=== PATIENT | female | born 1955 | race Caucasian/White ===

== ENCOUNTER 2016-10-03 13:41 | Inpatient (IN) | payer MEDICAID ==
[2016-09-21 15:17] VITALS: BMI 32.5
[~2016-10-03 13:41] MED LIST: ACETAMINOPHEN TAB 500 MG TAB PO ONE; CLINDAMYCIN 900 MG in DEXTROSE 5% IN WATER 50 ML IVPB ONE; DEXAMETHASONE SOD PHOSPHATE 10 MG/ML 1 ML VIAL IV ONE; HYDROmorphone 1 MG/ML 1 ML SYRINGE IVP PRN; MELOXICAM 7.5 MG TAB PO ONE; MIDAZOLAM 2 MG/2 ML VIAL IV PRN; ONDANSETRON 4 MG/2 ML VIAL IVP ONE; SCOPOLAMINE 1.5MG/72HR PATCH TRANSDERM ONE; TRANEXAMIC ACID 1,000 MG in SODIUM CHLORIDE 0.9% 100 ML IVPB ONE
[2016-10-03] MEDS ORDERED: LIDOCAINE 1% 20 ML VIAL (10MG/ML) FOR IV START INTRADERMA ONE (13:55)
[2016-10-03] MEDS: LACTATED RINGERS 1,000 ML IV SCH (13:57)
[2016-10-03] MEDS ORDERED: MIDAZOLAM 2 MG/2 ML VIAL IV ONE (14:22)
[2016-10-03] MEDS ORDERED: ROPIVACAINE 246.25 MG, EPINEPHrine 0.5 MG, KETOROLAC 30 MG, cloNIDine HCL/PF 80 MCG, WA... MISCELLANE ONE ×5 (15:46)
[2016-10-03] MEDS ORDERED: MAGNESIUM HYDROXIDE 2,400 MG/10 ML CUP PO PRN (15:55)
[2016-10-03] MEDS ORDERED: ONDANSETRON 4 MG/2 ML VIAL IVP PRN (15:55)
[2016-10-03] MEDS ORDERED: BISACODYL 10 MG SUPP RECTAL PRN (15:55)
[2016-10-03] MEDS ORDERED: NALOXONE 0.4 MG/ML 1 ML VIAL IV PRN (15:55)
[2016-10-03] MEDS ORDERED: HYDROmorphone 1 MG/ML 1 ML SYRINGE IVP PRN ×3 (15:55)
[2016-10-03] MEDS ORDERED: DIAZEPAM 5 MG TAB PO PRN ×2 (15:55)
[2016-10-03] MEDS ORDERED: HYDROcodone/APAP 5-325MG 1 EACH TAB PO PRN (15:55)
[2016-10-03] MEDS ORDERED: MIDAZOLAM 2 MG/2 ML VIAL ONE (16:19)
[2016-10-03] MEDS ORDERED: PROPOFOL 10 MG/ML 20 ML VIAL IV ONE (16:19)
[2016-10-03] MEDS ORDERED: TRANEXAMIC ACID 1,000 MG/10 ML VIAL ONE (16:19)
[2016-10-03] MEDS ORDERED: SODIUM CHLORIDE 0.9% 100 ML BAG ONE (16:19)
[2016-10-03] MEDS: ROPIVACAINE 246.25 MG, EPINEPHrine 0.5 MG, KETOROLAC 30 MG, cloNIDine HCL/PF 80 MCG, WA... MISCELLANE ONE ×10 (16:47→17:20)
[2016-10-03] MEDS ORDERED: CLINDAMYCIN 1,800 MG in SODIUM CHLORIDE 0.9% IRRIGATIO 3,000 ML IRRIGATION ONE (16:48)
[2016-10-03] MEDS ORDERED: LACTATED RINGERS 1,000 ML IV ONE (16:48)
[2016-10-03] MEDS ORDERED: ROPIVACAINE 1,100 MG, SODIUM CHLORIDE 0.9% 330 ML MISCELLANE PRN ×2 (17:20)
--- NOTE | 2016-10-03 17:21 | P.ONQ ---
Anesthesiology Proc Note - PNB - Peripheral Nerve Block Performed Left Adductor Canal Indication: Acute Post-Operative Pain, Requested by physician (hayes nino) Sedation Type: Sedate with meaningful contact maintained Preparation: Sterile Dressing Position: Supine Catheter: Indwelling Needle Types: On-Q Needle Size: 100mm (4") Needle Gauge: 20 Technique: Ultrasound Injectate: 0.5% Ropivacaine (see comment for volume) (20) Blood Aspirated: No Pain Paresthesia on Injection Noted: No Resistance on Injection: Normal Events: Uneventful and Well Tolerated
--- NOTE | 2016-10-03 17:44 | P.OP ---
Date of Procedure: 10/03/16 Preoperative Diagnosis: Severe osteoarthritis left knee Postoperative Diagnosis: Severe osteoarthritis left knee Procedure(s) Performed: Left total knee arthroplasty Implants: Catalan [employer] Nephew Oxinium femoral component size 5, left Catalan [employer] Nephew Flor II left nonporous tibial baseplate size 4 Catalan [employer] Nephew size 9 mm Legion XLPE dished articular insert, size 3-4 Catalan [employer] Nephew Flor II resurfacing patellar component, 32 mm, 7.5mm thick All components were cemented using Kisha bone cement.. The articulation is ceramic on polyethylene. Anesthesia: spinal Surgeon: Buck Cronin Sales Associate Fishing #1: Merline Marquez Estimated Blood Loss (ml): 50 Pathology: other (Bone and cartilage) Condition: stable Disposition: PACU Indications for Procedure: After failure of conservative treatment we discussed the surgical and nonsurgical treatment options at length. Patient wishes to proceed with a total knee arthroplasty. Complications specific to this procedure were discussed at length, including but not limited to infection, bleeding, stiffness , and nerve injury. Patient is aware of all these complications and informed consent was obtained Operative Findings: The operative findings are consistent with severe osteoarthritis of the left knee Description of Procedure: Patient was seen in the preoperative area consent was reviewed and operative site was marked with a skin marker. Patient was then brought to the operating room and given preoperative antibiotics intravenously. A spinal anesthetic was administered by the anesthesia department. A tourniquet was placed on the upper thigh and the lower extremity was prepped and draped in usual sterile fashion. A gram of transexamic acid was given. A universal timeout was then performed which confirmed the patient's name, surgical site, ALLERGIES, and consent. The lower extremity was then exsanguinated and tourniquet was inflated to 250 mmHg. A standard and anterior midline approach to the knee was performed. The skin and subcutaneous tissue was dissected down to the patellar tendon. A medial parapatellar arthrotomy was then performed. The knee was then extended, the patellar was everted, and the knee was again flexed. Anterior horns of both menisci were excised, and a release was performed to the posterior medial aspect of the knee. On gross visual inspection, there was complete loss of articular cartilage in the medial and patellofemoral joint spaces. There was also significant cartilage damage in the lateral compartment. There were multiple periarticular osteophytes which were then removed with a Ronguer. The femoral canal was then opened with the appropriate drill, and the intramedullary femoral cutting guide was then placed and set for 4 of valgus. The distal femoral cutting block was then pinned in place, and the distal femur was then cut. The cutting block was then removed and the cut was checked for flatness. Next, the sizing guide was then placed and set for 3 external rotation based off of the epicondylar axis and Whitesides line. After the femur was sized, the appropriate 4-in-1 cutting block was then pinned in place. The anterior condyles were cut without notching. The posterior and chamfer cuts were performed while protecting the collateral ligaments. The cutting block was then removed, and the femoral canal was plugged with autologous bone. Attention was then directed to the tibia. The remaining ACL was removed with a Ronguer, and the tibia was then gently subluxed forward with a large bent knee retractor. Any remaining menisci was excised. The posterior lateral corner was cauterized in order to cauterize the lateral geniculate artery. The extra medullary tibial cutting guide was then placed, set for the appropriate rotation , slope, and depth of resection. The proximal tibia cutting guide was then pinned in place. Proximal tibia was then cut and sized. Next trials were then placed with the appropriate-sized insert. The knee was able to fully extend and flex to 130 and was stable throughout all range of motion. The knee was then extended, patella everted. Patella was then measured, and then using an osteotomy guide, the patella was cut at the appropriate level. The patella was then measured and drilled and the patella trial was then placed. The knee was then taken through range of motion with the patella trial and the patella tracked normally. The knee was then extended patella trial was then removed and the patella was everted. Knee was then flexed and lug holes were drilled through the femoral trial and the femoral trial was then removed. The tibial was then exposed, and the tibial broach guide was then pinned in place after it was set for the appropriate rotation to allow for the most coverage without overhang. The tibia was then broached. The cut surfaces of bone were then irrigated with pulsatile lavage. The posterior structures were injected with the ropivacaine solution. The knee was also irrigated with Irrisept solution. The components were then opened, the cement was mixed, and the components were then cemented in place. The cement was allowed to harden with the knee in full extension. While the cement was hardening, the remaining soft tissues were injected with the ropivacaine solution. After the cemented hardened. The tourniquet was released, and hemostasis was obtained. A second gram of transexamic acid was given. The knee was again irrigated. The knee was again taken through range of motion and found to be stable throughout all range of motion of 0-130, and the patella tracked normally. The fascia was then closed with #2 strata fix suture. The subcutaneous tissue was closed with 3-0 Vicryl and 3-0 strata fix. Dermabond tape was used for the skin, and the patient was placed in a sterile dressing. Patient was then transferred to recovery room in stable condition. The chiropractor assistant MARY Hickman was required due the complexity surgery and the need for a skilled surgical resident. She assisted in positioning, draping , retraction, and closure of the wound.
[2016-10-03] MEDS ORDERED: SENNOSIDES-DOCUSATE SODIUM 1 EACH TAB PO SCH (21:00)
[2016-10-03] MEDS: ASPIRIN 325 MG TAB PO SCH (22:17)
--- NOTE | 2016-10-03 22:23 | XR ---
EXAMINATION TYPE: XR knee limited LT DATE OF EXAM: 10/03/2016 6:14 PM CLINICAL HISTORY: Postop left total knee replacement TECHNIQUE: Three views of the left knee are obtained. COMPARISON: No prior radiographs. FINDINGS: There is anatomic alignment of the left femoral and tibial components of a knee arthroplas ty. No surrounding lucency is appreciated to indicate loosening. Hardware is intact. No periosteal re action. Postoperative subcutaneous emphysema is seen around the knee joint. Suprapatellar effusion is noted, likely postsurgical. Generalized postoperative subcutaneous edema. IMPRESSION: Appropriate postsurgical anatomic alignment of a right knee arthroplasty. Subcutaneous em physema and edema are postoperative in nature.
[2016-10-03] MEDS: SODIUM CHLORIDE 0.9% 1,000 ML IV SCH (22:36)
[2016-10-04] MEDS: CLINDAMYCIN 900 MG in DEXTROSE 5% IN WATER 50 ML IVPB SCH ×4 (01:06→05:21)
[2016-10-04 01:23] VITALS: TEMP 98.8
[2016-10-04] MEDS: HYDROcodone/APAP 5-325MG 1 EACH TAB PO PRN ×2 (01:25→08:19)
[2016-10-04] MEDS: SODIUM CHLORIDE 0.9% 1,000 ML IV SCH (05:21)
[2016-10-04] MEDS: LACTATED RINGERS 1,000 ML IV SCH (05:37)
[2016-10-04 07:28] VITALS: BP 100/58; PULSE 95; RESP 18
[2016-10-04 08:04] LABS: Basophils % (A) 0 %; CH 29.9; CHCM 33.2; Eosinophils % (A) 0 %; HCT 34.7 % (34.0-46.0); HDW 2.52; HGB 11.5 gm/dL (11.4-16.0); Luc # (Auto) 0.08; Luc % (Auto) 1; Lymphocytes # (A) 1.2 k/uL (1.0-4.8); Lymphocytes % (A) 12 %; MCH 30.1 pg (25.0-35.0); MCHC 33.3 g/dL (31.0-37.0); MCV 90.4 fL (80.0-100.0); Mean Platelet Volume 7.4; Monocytes # (A) 0.5 k/uL (0-1.0); Monocytes % (A) 5 %; Neutrophils # (A) 8.4 k/uL (1.3-7.7); Neutrophils % (A) 83 %; RBC 3.83 m/uL (3.80-5.40); WBC 10.2 k/uL (3.8-10.6); WBC (Perox) 10.63
[2016-10-04] MEDS: ASPIRIN 325 MG TAB PO SCH (08:18)
--- NOTE | 2016-10-04 08:18 | P.PN ---
Progress Note - Text The patient is status post left adductor canal catheter placement. The catheter was placed for postoperative pain control, status post total left arthroplasty. Ropivacaine 0.2% is infusing at 8 mLs per hour. The patient has no complaints of left lower extremity numbness or weakness. Patient's VAS score is 0 -10. Assessment: Patient's adductor canal catheter is in place and working appropriately. Plan: continue infusion and adjust it as needed.
--- NOTE | 2016-10-04 08:57 | P.DS ---
Providers Date of admission: 10/03/16 13:41 Expected date of discharge: 10/04/16 Attending physician: Buck Cronin Consults: 10/03/16 15:55 Consult Physician Routine Consulting Provider: Kedar James Consult Reason/Comments: medical management Do you want consulting provider notified?: Yes Primary care physician: Dread Chahal - Discharge Diagnosis(es) (1) S/P total knee arthroplasty Current Visit: Yes Status: Acute (2) Primary osteoarthritis of left knee Current Visit: Yes Status: Acute Hospital Course: This is a pleasant 60-year-old female last seen in our office with complaints of left knee pain. Patient has known history of degenerative arthritis of the left knee and presented to discuss options. After discussion and consideration , the patient elected to proceed with a left total knee arthroplasty. Patient was seen preoperatively, and medically cleared for surgery by . her primary care physician. Patient was admitted to [facility] and underwent left total knee arthroplasty with Dr. Buck Cronin. The procedure was performed without complications or sequelae. The patient is seen and evaluated at bedside today. Pain is well-controlled. Patient has no new complaints today and denies any fevers, chills, nausea, vomiting, or shortness of breath. Vital signs are stable. Dressing is clean dry and intact. Incision looks fine with no erythema or active drainage. Calf is soft and nontender. Patient has full foot and ankle motion without difficulty. Patient's left lower extremity is neurovascularly intact. The patient is orthopedically stable for discharge today. Pertinent Studies: Laboratory Tests 10/04/16 07:03 WBC 10.2 RBC 3.83 Hgb 11.5 Hct 34.7 MCV 90.4 MCH 30.1 Patient Condition at Discharge: Good Plan - Discharge Summary New Discharge Prescriptions: Aspirin EC [Ecotrin] 325 mg PO BID #60 tablet. HYDROcodone/APAP 7.5-325MG [Sherwood 7.5] 1 - 2 each PO Q6HR PRN #90 tab PRN Reason: Pain Sennosides-Docusate Sodium [Senokot-S] 2 tab PO DAILY #60 tablet Discharge Medication List Escitalopram [Lexapro] 10 mg PO DAILY 09/21/16 [History] Ibuprofen [Motrin] 600 mg PO Q8HR PRN 09/21/16 [History] Levothyroxine Sodium [Synthroid] 112 mcg PO DAILY 09/21/16 [History] Pregabalin [Lyrica] 200 mg PO BID 09/21/16 [History] Venlafaxine HCl [Effexor XR] 150 mg PO QAM 09/21/16 [History] traZODone HCL 100 mg PO HS 09/21/16 [History] Aspirin EC [Ecotrin] 325 mg PO BID #60 tablet. 10/04/16 [Rx] HYDROcodone/APAP 7.5-325MG [Sherwood 7.5] 1 - 2 each PO Q6HR PRN #90 tab 10/04/16 [ Rx] Sennosides-Docusate Sodium [Senokot-S] 2 tab PO DAILY #60 tablet 10/04/16 [Rx] Follow up Appointment(s)/Referral(s): Buck Cronin DO [Doctor of Osteopathic Medicine] - 2 Weeks Ambulatory/Diagnostic Orders: Continuous Passive Motion (CPM) Machine [DME.AMB1] Location: Determined By Patient Activity/Diet/Wound Care/Special Instructions: Weightbearing as tolerated with a walker CPM daily Daily dressing changes, keep incision clean and dry May shower after 72 hours without any drainage [facility] with questions or concerns [phone] Discharge Disposition: HOME WITH HOME HEALTH SERVICES
[2016-10-04] MEDS ORDERED: MELOXICAM 7.5 MG TAB PO SCH (09:00)
--- NOTE | 2016-10-04 11:22 | P.CONS ---
History of Present Illness - History of Present Illness 60-year-old female is post total left knee arthroplasty. Patient sitting in the chair states pain controlled. Vital signs stable CBC normal. Patient has history of hypothyroidism and depression both controlled Review of Systems Musculoskeletal: left: knee pain Past Medical History Past Medical History: Fibromyalgia, Osteoarthritis (OA), Thyroid Disorder History of Any Multi-Drug Resistant Organisms: None Reported Past Surgical History: Cholecystectomy Additional Past Surgical History / Comment(s): Donaldo fundoplasty, 10-03-16 total lt knee replacment Past Anesthesia/Blood Transfusion Reactions: Postoperative Nausea & Vomiting ( PONV) Past Psychological History: Depression Smoking Status: Never smoker Past Alcohol Use History: None Reported Past Drug Use History: None Reported - Past Family History Father Family Medical History: Cancer Additional Family Medical History / Comment(s): lung Medications and Allergies Home Medications Medication Instructions Recorded Confirmed Type Escitalopram [Lexapro] 10 mg PO DAILY 09/21/16 10/03/16 History Ibuprofen [Motrin] 600 mg PO Q8HR PRN 09/21/16 10/03/16 History Levothyroxine Sodium [Synthroid] 112 mcg PO DAILY 09/21/16 10/03/16 History Pregabalin [Lyrica] 200 mg PO BID 09/21/16 10/03/16 History Venlafaxine HCl [Effexor XR] 150 mg PO QAM 09/21/16 10/03/16 History traZODone HCL 100 mg PO HS 09/21/16 10/03/16 History Allergies Allergy/AdvReac Type Severity Reaction Status Date / Time adhesive tape Allergy Rash/Hives Verified 10/03/16 13:49 cephalexin [From Keflex] Allergy Unknown Verified 10/03/16 13:49 cetirizine [From Zyrtec] Allergy Rash/Hives Verified 10/03/16 13:49 Iodine and Iodide Containing Allergy blister Verified 10/03/16 13:49 Produc Physical Exam Vitals: Vital Signs Temp Pulse Resp BP Pulse Ox 10/04/16 07:00 98.8 F 95 18 100/58 95 10/04/16 04:00 16 10/04/16 01:22 98.8 F 74 16 128/61 93 L 10/03/16 22:30 98.4 F 16 135/64 95 10/03/16 22:15 69 16 126/60 96 10/03/16 22:00 79 16 133/66 96 10/03/16 21:45 88 16 148/72 94 L 10/03/16 21:30 85 16 155/78 95 10/03/16 21:15 88 16 117/63 94 L 10/03/16 21:00 93 16 131/66 96 10/03/16 20:45 90 16 128/63 96 10/03/16 20:30 88 16 129/66 93 L 10/03/16 20:15 88 16 120/68 95 10/03/16 20:00 89 16 119/60 95 10/03/16 19:45 97.8 F 94 16 129/59 94 L 10/03/16 18:31 96 16 130/62 93 L 10/03/16 18:17 97 16 127/59 95 10/03/16 17:57 97.0 F L 98 16 129/59 98 10/03/16 13:54 98.3 F 85 16 142/63 93 L Intake and Output 10/03/16 10/04/16 10/04/16 22:59 06:59 14:59 Intake Total 1058 800 120 Output Total 100 400 1 Balance 958 400 119 Intake: IV 1058 800 Sodium Chloride 0.9% 1, 800 000 ml @ 100 mls/hr IV . Q10H [facility] Rx#:[id number] Oral 120 Output: Urine 50 400 1 Estimated Blood Loss 50 Other: Voiding Method Bedpan # Voids 1 2 - Constitutional General appearance: obese - EENT Eyes: PERRLA Ears: bilateral: normal - Neck Neck: normal ROM - Respiratory Respiratory: bilateral: CTA - Cardiovascular Rhythm: regular - Gastrointestinal General gastrointestinal: soft - Integumentary Integumentary: normal - Neurologic Neurologic: CNII-XII intact - Psychiatric Psychiatric: A&O x's 3, appropriate affect, intact judgment & insight Results CBC & Chem 7: 10/04/16 07:03 Labs: Abnormal Lab Results - Last 24 Hours (Table) 10/04/16 Range/Units 07:03 Neutrophils # 8.4 H (1.3-7.7) k/uL Assessment and Plan Plan: Assessment Patient's postoperative left knee arthroplasty for osteoarthritis History of fibromyalgia History of depression History of hypothyroidism Plan Discharged home on home medication Patient stable for discharge
== END 2016-10-04 12:16 | disposition home health service (06) | DRG 470 ==
LOC: 2ORMAIN 13:41 → 3SUR 17:55
PROVIDERS: ADMIT Family Medicine; ATTEND Family Medicine
PROC: 0SRD0J9 Replacement of Left Knee Joint with Synthetic Substitute, Cemented, Open Approach (ICD-10-PCS; principal; 2016-10-03 15:20)
DX: M17.12 Unilateral primary osteoarthritis, left knee (principal); F32.9 Major depressive disorder, single episode, unspecified; E03.9 Hypothyroidism, unspecified; M79.7 Fibromyalgia; Z79.899 Other long term (current) drug therapy; Z88.8 Allergy status to other drugs, medicaments and biological substances; Z88.1 Allergy status to other antibiotic agents; Z91.041 Radiographic dye allergy status
CPT/HCPCS: 85025; 88300

== ENCOUNTER → 2017-05-18 | Outpatient (CLI) | payer MEDICAID ==
[2017-05-18 07:51] LABS: CH 31.1; HDW 2.73; HGB 13.6 gm/dL (11.4-16.0); MCH 30.3 pg (25.0-35.0); MCHC 33.9 g/dL (31.0-37.0); MCV 89.3 fL (80.0-100.0); Mean Platelet Volume 7.7; RBC 4.48 m/uL (3.80-5.40); RDW 14.3 % (11.5-15.5); WBC 4.4 k/uL (3.8-10.6)
[2017-05-18 09:35] LABS: ALT 33 U/L (9-52); AST 19 U/L (14-36); Alkaline Phosphatase 72 U/L (38-126); Anion Gap 9 mmol/L; Blood Urea Nitrogen 18 mg/dL (7-17); Calcium 9.7 mg/dL (8.4-10.2); Carbon Dioxide 28 mmol/L (22-30); Chloride 105 mmol/L (98-107); Cholesterol 192 mg/dL (<200); Glucose 135 mg/dL (74-99); HDL Cholesterol 54 mg/dL (40-60); Non-African American GFR(MDRD) >60 (>60 ml/min/1.73 sqM); Sodium 142 mmol/L (137-145); Total Bilirubin 0.6 mg/dL (0.2-1.3); Total Protein 6.5 g/dL (6.3-8.2)
== END | disposition home or self-care (01) ==
LOC: LABWHC1 07:18
PROVIDERS: ATTEND Psychiatry & Neurology Psychiatry
DX: E03.9 Hypothyroidism, unspecified (principal); Z79.899 Other long term (current) drug therapy
CPT/HCPCS: 36415; 80053; 80061; 84439; 84443; 85027

== ENCOUNTER → 2017-05-23 | Outpatient (CLI) | payer MEDICAID ==
[2017-05-23 14:06] LABS: Hemoglobin A1C 5.4 % (4.2-6.1)
== END | disposition home or self-care (01) ==
LOC: LABWHC1 11:59
PROVIDERS: ATTEND Psychiatry & Neurology Psychiatry
DX: E11.9 Type 2 diabetes mellitus without complications (principal)
CPT/HCPCS: 36415; 83036

== ENCOUNTER → 2017-05-30 | Outpatient (CLI) | payer MEDICAID ==
--- NOTE | 2017-05-31 10:56 | MM ---
Reason for exam: screening (asymptomatic). Last mammogram was performed 8 years and 5 months ago. Physical Findings: A clinical breast exam by your physician is recommended on an annual basis and results should be correlated with mammographic findings. MG 3D Screening Mammo W/Cad Bilateral CC and MLO view(s) were taken. Prior study comparison: December 25, 2008, bilateral digital screening mammogram. October 29, 2004, bilateral screening mammogram. The breast tissue is heterogeneously dense. This may lower the sensitivity of mammography. There is no discrete abnormality. No significant changes when compared with prior studies. ASSESSMENT: Negative, BI-RAD 1 RECOMMENDATION: Routine screening mammogram of both breasts in 1 year.
== END | disposition home or self-care (01) ==
LOC: RADMAMWWP 15:31
PROVIDERS: ATTEND Family Medicine
DX: Z12.31 Encounter for screening mammogram for malignant neoplasm of breast (principal)
CPT/HCPCS: 77063; G0202

== ENCOUNTER → 2017-09-21 | Outpatient (CLI) | payer MEDICAID ==
[2017-09-21 10:30] LABS: T4, Free (Free Thyroxine) 1.15 ng/dL (0.78-2.19)
[2017-09-21 18:51] LABS: Hemoglobin A1C 5.6 % (4.0-6.0)
== END | disposition home or self-care (01) ==
LOC: LABWHC1 09:04
PROVIDERS: ATTEND Psychiatry & Neurology Psychiatry
DX: E03.9 Hypothyroidism, unspecified (principal)
CPT/HCPCS: 36415; 83036; 84439; 84443; 84460

== ENCOUNTER → 2018-04-03 | Outpatient (CLI) | payer MEDICAID ==
--- NOTE | 2018-04-03 16:16 | US ---
EXAMINATION TYPE: US thyroid st tissue head/neck DATE OF EXAM: 04/03/2018 COMPARISON: NONE CLINICAL HISTORY: 62-year-old female E04.1 Thyroid nodule. Difficulty swallowing, on thyroid meds TECHNIQUE: Multiple sonographic images of the thyroid gland are obtained. FINDINGS: GLAND SIZE: Right Lobe: 2.4 x 0.7 x 0.8 cm Overall Parenchyma: heterogenous Left Lobe: 2.7 x 0.6 x 0.6 cm Overall Parenchyma: heterogeneous Isthmus Thickness: 0.3 cm NODULES RIGHT: # of nodules measured on right: 0 LEFT: # of nodules measured on left: 0 ISTHMUS: # of nodules measured in the isthmus: 0 Bilateral neck scanned, no evidence of lymphadenopathy. [employer] notes: Atrophic heterogeneous gland without any definite lesions seen at this time. IMPRESSION: Small heterogeneous gland suggesting chronic hypothyroidism. No discrete nodules.
== END | disposition home or self-care (01) ==
LOC: RADUSWWP 13:20
PROVIDERS: ATTEND Family Medicine
DX: R93.8 Abnormal findings on diagnostic imaging of other specified body structures (principal)
CPT/HCPCS: 76536

== ENCOUNTER → 2019-02-11 | Outpatient (CLI) | payer MEDICAID ==
[2019-02-11 10:16] LABS: HCT 40.6 % (34.0-46.0); MCH 28.9 pg (25.0-35.0); MCV 90.3 fL (80.0-100.0); Mean Platelet Volume 7.3; Platelet Count 310 k/uL (150-450); RBC 4.49 m/uL (3.80-5.40); RDW 13.4 % (11.5-15.5); WBC 5.7 k/uL (3.8-10.6)
[2019-02-11 16:56] LABS: African American GFR (CKD) 69.9 (60.0-200.0); Albumin 4.2 g/dL (3.80-4.90); Albumin/Globulin Ratio 2.21 (1.60-3.17); Anion Gap 8.8 mmol/L (4.00-12.00); Calcium 9.2 mg/dL (8.7-10.3); Carbon Dioxide 29.2 mmol/L (21.6-31.8); Globulin 1.9 g/dL (1.6-3.3); Potassium 4.5 mmol/L (3.5-5.5); Total Bilirubin 0.5 mg/dL (0.2-1.2); Total Protein 6.1 g/dL (6.2-8.2)
[2019-02-11 17:06] LABS: T4, Free (Free Thyroxine) 0.5 ng/dL (0.80-1.80)
== END | disposition home or self-care (01) ==
LOC: LABWHC1 09:41
PROVIDERS: ATTEND Psychiatry & Neurology Psychiatry
DX: E78.5 Hyperlipidemia, unspecified (principal); E03.9 Hypothyroidism, unspecified; Z79.899 Other long term (current) drug therapy
CPT/HCPCS: 36415; 80053; 80061; 84439; 84443; 85027

== ENCOUNTER → 2019-03-22 | Outpatient (CLI) | payer MEDICAID ==
--- NOTE | 2019-03-24 13:11 | US ---
EXAMINATION TYPE: US thyroid st tissue head/neck DATE OF EXAM: 03/22/2019 COMPARISON: US dated 04/03/2018 CLINICAL HISTORY: E03.9 HYPOTHYROIDISM. Patient stated has been taking thyroid medication x 30 years or more. GLAND SIZE: Right Lobe: 2.5 x 0.8 x 0.6 cm Overall Parenchyma: heterogenous Left Lobe: 2.5 x 0.7 x 0.6 cm Overall Parenchyma: heterogeneous Isthmus Thickness: 0.3 cm NODULES RIGHT: # of nodules measured on right: 0 LEFT: # of nodules measured on left: 0 ISTHMUS: # of nodules measured in the isthmus: 0 Bilateral neck scanned: no evidence of lymphadenopathy. IMPRESSION: Findings may be indicative of underlying thyroiditis, there is thyroid atrophy similar to prior exam.
== END | disposition home or self-care (01) ==
LOC: RADUSWWP 14:53
PROVIDERS: ATTEND Psychiatry & Neurology Psychiatry
DX: E03.4 Atrophy of thyroid (acquired) (principal); E03.9 Hypothyroidism, unspecified
CPT/HCPCS: 76536

== ENCOUNTER → 2019-05-22 | Outpatient (CLI) | payer MEDICAID ==
[2019-05-22 19:20] LABS: Hemoglobin A1C 5.5 % (4.0-6.0)
== END | disposition home or self-care (01) ==
LOC: LABWHC1 06:52
PROVIDERS: ATTEND Psychiatry & Neurology Psychiatry
DX: E03.9 Hypothyroidism, unspecified (principal); R73.9 Hyperglycemia, unspecified
CPT/HCPCS: 36415; 83036; 84443

== ENCOUNTER 2020-04-07 14:23 | Emergency (ER) | payer MEDICAID ==
[2020-04-07 14:35] VITALS: TEMP 98.2
[2020-04-07] MEDS ORDERED: SODIUM CHLORIDE 0.9% 1,000 ML IV STA (14:56)
[2020-04-07 15:13] LABS: Basophils % (A) 1 %; Eosinophils # (A) 0.2 k/uL (0-0.7); Eosinophils % (A) 3 %; HCT 39.7 % (34.0-46.0); Lymphocytes # (A) 1.9 k/uL (1.0-4.8); Lymphocytes % (A) 31 %; MCH 29.3 pg (25.0-35.0); MCHC 32.8 g/dL (31.0-37.0); MCV 89.5 fL (80.0-100.0); Mean Platelet Volume 7.7; Monocytes # (A) 0.3 k/uL (0-1.0); Monocytes % (A) 5 %; Neutrophils # (A) 3.6 k/uL (1.3-7.7); Neutrophils % (A) 59 %; Platelet Count 233 k/uL (150-450); RBC 4.43 m/uL (3.80-5.40); RDW 14.1 % (11.5-15.5); WBC 6.1 k/uL (3.8-10.6)
[2020-04-07 15:21] LABS: INR 1.1 (<1.2); Partial Thromboplastin Time 24.4 sec (22.0-30.0); Prothrombin Time 10.8 sec (9.0-12.0)
[2020-04-07 15:23] LABS: Albumin 4.1 g/dL (3.5-5.0); Calcium 9.1 mg/dL (8.4-10.2); Magnesium 2.2 mg/dL (1.6-2.3); Potassium 4.1 mmol/L (3.5-5.1); Total Bilirubin 0.6 mg/dL (0.2-1.3); Total Protein 6.5 g/dL (6.3-8.2)
--- NOTE | 2020-04-07 15:24 | ED ---
Dizziness HPI - General Chief Complaint: Syncope Stated Complaint: Syncope x3 Time Seen by Provider: 04/07/20 14:38 Source: patient, family, RN notes reviewed Mode of arrival: wheelchair Limitations: no limitations - History of Present Illness Initial Comments: 64-year-old female presents emergency Department with daughter chief complaint of fatigue, passing out episodes. Patient states that she was driving and states that she started having some tunnel vision and felt that she had a cold or cannot drive anymore. Patient states she did. Patient's daughter started driving in which he drove back from [place] she had 3 other episodes where she should try to stay awake and felt she has not passed out. Patient denies any pain denies any chest pain, shortness breath, nausea, vomiting, diarrhea constipation no focal weakness. She does complain that she's had increase in right-sided headaches over the last few days. Denies any blurred vision or any photophobia. Denies any medication changes. Patient states that she does take multiple psychiatric medications. Patient denies any medication changes denies any other complaints. - Related Data Home Medications Medication Instructions Recorded Confirmed Escitalopram [Lexapro] 10 mg PO DAILY 09/21/16 10/03/16 Ibuprofen [Motrin] 600 mg PO Q8HR PRN 09/21/16 10/03/16 Levothyroxine Sodium [Synthroid] 112 mcg PO DAILY 09/21/16 10/03/16 Pregabalin [Lyrica] 200 mg PO BID 09/21/16 10/03/16 Venlafaxine HCl [Effexor XR] 150 mg PO QAM 09/21/16 10/03/16 traZODone HCL 100 mg PO HS 09/21/16 10/03/16 Previous Rx's Medication Instructions Recorded Aspirin EC [Ecotrin] 325 mg PO BID #60 tablet. 10/04/16 HYDROcodone/APAP 7.5-325MG [[place] 1 - 2 each PO Q6HR PRN #90 tab 10/04/16 7.5-325] Sennosides-Docusate Sodium 2 tab PO DAILY #60 tablet 10/04/16 [Senokot-S] Allergies Allergy/AdvReac Type Severity Reaction Status Date / Time adhesive tape Allergy Rash/Hives Verified 10/03/16 13:49 cephalexin [From Keflex] Allergy Unknown Verified 10/03/16 13:49 cetirizine [From Zyrtec] Allergy Rash/Hives Verified 10/03/16 13:49 Iodine and Iodide Containing Allergy blister Verified 10/03/16 13:49 Produc Review of Systems ROS Statement: Those systems with pertinent positive or pertinent negative responses have been documented in the HPI. ROS Other: All systems not noted in ROS Statement are negative. Past Medical History Past Medical History: Fibromyalgia, Osteoarthritis (OA), Thyroid Disorder History of Any Multi-Drug Resistant Organisms: None Reported Past Surgical History: Cholecystectomy Additional Past Surgical History / Comment(s): Donaldo fundoplasty, 10-03-16 total lt knee replacment Past Anesthesia/Blood Transfusion Reactions: Postoperative Nausea & Vomiting (PONV) Past Psychological History: Depression Smoking Status: Never smoker Past Alcohol Use History: None Reported Past Drug Use History: None Reported - Past Family History Father Family Medical History: Cancer Additional Family Medical History / Comment(s): lung General Exam Limitations: no limitations General appearance: alert, in no apparent distress Head exam: Present: atraumatic, normocephalic, normal inspection Eye exam: Present: normal appearance, PERRL, EOMI. Absent: scleral icterus, conjunctival injection, periorbital swelling ENT exam: Present: normal exam, normal oropharynx, mucous membranes moist, TM's normal bilaterally, normal external ear exam Neck exam: Present: normal inspection, full ROM. Absent: tenderness, meningismus, lymphadenopathy Respiratory exam: Present: normal lung sounds bilaterally. Absent: respiratory distress, wheezes, rales, rhonchi, stridor Cardiovascular Exam: Present: regular rate, normal rhythm, normal heart sounds. Absent: systolic murmur, diastolic murmur, rubs, gallop, clicks Back exam: Absent: CVA tenderness (R), CVA tenderness (L) Neurological exam: Present: alert, oriented X3, CN II-XII intact, reflexes normal, other (Finger to nose intact bilaterally without over shooting.). Absent: motor sensory deficit Skin exam: Present: warm, dry, intact, normal color. Absent: rash Course Vital Signs 04/07/20 04/07/20 04/07/20 14:31 15:25 15:30 Temperature 98.2 F Pulse Rate 81 73 Respiratory 16 13 Rate Blood Pressure 137/77 152/80 152/80 O2 Sat by Pulse 99 99 Oximetry 04/07/20 16:00 Temperature Pulse Rate 70 Respiratory 18 Rate Blood Pressure 152/80 O2 Sat by Pulse 99 Oximetry Medical Decision Making - Medical Decision Making 64-year-old presented for near syncopal episode. Patient's labs, EKG, urinalysis and CT of the brain were reviewed no acute findings. I did recommend patient be admitted for near-syncope multiple episodes patient declines admission. Patient states she will follow-up with primary care physician, return for any worsening symptoms. - Lab Data Result diagrams: 04/07/20 15:07 04/07/20 15:07 Lab Results 04/07/20 04/07/20 04/07/20 Range/Units 15:07 15:07 15:07 WBC 6.1 (3.8-10.6) k/uL RBC 4.43 (3.80-5.40) m/uL Hgb 13.0 (11.4-16.0) gm/dL Hct 39.7 (34.0-46.0) % MCV 89.5 (80.0-100.0) fL MCH 29.3 (25.0-35.0) pg MCHC 32.8 (31.0-37.0) g/dL RDW 14.1 (11.5-15.5) % Plt Count 233 (150-450) k/uL Neutrophils % 59 % Lymphocytes % 31 % Monocytes % 5 % Eosinophils % 3 % Basophils % 1 % Neutrophils # 3.6 (1.3-7.7) k/uL Lymphocytes # 1.9 (1.0-4.8) k/uL Monocytes # 0.3 (0-1.0) k/uL Eosinophils # 0.2 (0-0.7) k/uL Basophils # 0.0 (0-0.2) k/uL PT 10.8 (9.0-12.0) sec INR 1.1 (<1.2) APTT 24.4 (22.0-30.0) sec Sodium 139 (137-145) mmol/L Potassium 4.1 (3.5-5.1) mmol/L Chloride 104 (98-107) mmol/L Carbon Dioxide 29 (22-30) mmol/L Anion Gap 6 mmol/L BUN 10 (7-17) mg/dL Creatinine 0.82 (0.52-1.04) mg/dL Est GFR (CKD-EPI)AfAm 88 (>60 ml/min/1.73 sqM) Est GFR (CKD-EPI)NonAf 77 (>60 ml/min/1.73 sqM) Glucose 126 H (74-99) mg/dL Calcium 9.1 (8.4-10.2) mg/dL Magnesium 2.2 (1.6-2.3) mg/dL Total Bilirubin 0.6 (0.2-1.3) mg/dL AST 29 (14-36) U/L ALT 21 (4-34) U/L Alkaline Phosphatase 74 (38-126) U/L Troponin I (0.000-0.034) ng/mL Total Protein 6.5 (6.3-8.2) g/dL Albumin 4.1 (3.5-5.0) g/dL Urine Color Urine Appearance (Clear) Urine pH (5.0-8.0) Ur Specific [place] (1.001-1.035) Urine Protein (Negative) Urine Glucose (UA) (Negative) Urine Ketones (Negative) Urine Blood (Negative) Urine Nitrite (Negative) Urine Bilirubin (Negative) Urine Urobilinogen (<2.0) mg/dL Ur Leukocyte Esterase (Negative) 04/07/20 04/07/20 Range/Units 15:07 16:20 WBC (3.8-10.6) k/uL RBC (3.80-5.40) m/uL Hgb (11.4-16.0) gm/dL Hct (34.0-46.0) % MCV (80.0-100.0) fL MCH (25.0-35.0) pg MCHC (31.0-37.0) g/dL RDW (11.5-15.5) % Plt Count (150-450) k/uL Neutrophils % % Lymphocytes % % Monocytes % % Eosinophils % % Basophils % % Neutrophils # (1.3-7.7) k/uL Lymphocytes # (1.0-4.8) k/uL Monocytes # (0-1.0) k/uL Eosinophils # (0-0.7) k/uL Basophils # (0-0.2) k/uL PT (9.0-12.0) sec INR (<1.2) APTT (22.0-30.0) sec Sodium (137-145) mmol/L Potassium (3.5-5.1) mmol/L Chloride (98-107) mmol/L Carbon Dioxide (22-30) mmol/L Anion Gap mmol/L BUN (7-17) mg/dL Creatinine (0.52-1.04) mg/dL Est GFR (CKD-EPI)AfAm (>60 ml/min/1.73 sqM) Est GFR (CKD-EPI)NonAf (>60 ml/min/1.73 sqM) Glucose (74-99) mg/dL Calcium (8.4-10.2) mg/dL Magnesium (1.6-2.3) mg/dL Total Bilirubin (0.2-1.3) mg/dL AST (14-36) U/L ALT (4-34) U/L Alkaline Phosphatase (38-126) U/L Troponin I <0.012 (0.000-0.034) ng/mL Total Protein (6.3-8.2) g/dL Albumin (3.5-5.0) g/dL Urine Color Colorless Urine Appearance Clear (Clear) Urine pH 7.5 (5.0-8.0) Ur Specific [place] 1.003 (1.001-1.035) Urine Protein Negative (Negative) Urine Glucose (UA) Negative (Negative) Urine Ketones Negative (Negative) Urine Blood Negative (Negative) Urine Nitrite Negative (Negative) Urine Bilirubin Negative (Negative) Urine Urobilinogen <2.0 (<2.0) mg/dL Ur Leukocyte Esterase Negative (Negative) Disposition Clinical Impression: Near syncope Disposition: HOME SELF-CARE Condition: Stable Instructions (If sedation given, give patient instructions): Near Syncope (ED) Additional Instructions: Please return to the Emergency Department if symptoms worsen or any other concerns. Is patient prescribed a controlled substance at d/c from ED?: No Referrals: Dread Chahal MD [Primary Care Provider] - 1-2 days Time of Disposition: 16:53
--- NOTE | 2020-04-07 15:48 | XR ---
EXAMINATION TYPE: XR chest 2V DATE OF EXAM: 04/07/2020 COMPARISON: NONE HISTORY: Shortness of breath TECHNIQUE: Frontal and lateral views of the chest are obtained. FINDINGS: Scattered senescent parenchymal changes noted. Hyperinflation compatible with COPD. No evidence for infiltrate. No evidence for atelectasis. Heart size is stable. Mediastinal structures are stable and grossly unremarkable. No evidence for hilar prominence. Degenerative changes dorsal spine. IMPRESSION: 1. No evidence for acute pulmonary disease.
--- NOTE | 2020-04-07 15:52 | CT ---
EXAMINATION TYPE: CT brain wo con DATE OF EXAM: 04/07/2020 COMPARISON: None INDICATION: Left sided weakness and Multiple syncopal episodes today DLP: 1142.4 mGycm, Automated exposure control for dose reduction was used. CONTRAST: None CT of the brain is performed utilizing 3 mm thick sections through the posterior fossa and 3 mm thick sections through the remaining calvarium. Study is performed within 24 hours of arrival to the hosp ital. No abnormal hyperdensity is present to suggest an acute intracranial hemorrhage. No mass lesion is evident. No acute infarcts are evident. Ventricles and sulci are appropriate for the patient age. Paranasal sinuses and mastoid air cells within the [id number] are clear. IMPRESSIONS: 1. Normal CT Brain
[2020-04-07 16:37] LABS: Appearance,Urine Clear (Clear); Bilirubin,Urine Negative (Negative); Blood,Urine Negative (Negative); Color,Urine Colorless; Glucose,Urine (UA) Negative (Negative); Ketones,Urine Negative (Negative); Leukocyte Esterase,Urine Negative (Negative); Nitrite,Urine Negative (Negative); PH, Urine 7.5 (5.0-8.0); Protein,Urine Negative (Negative); Specific Gravity,Urine 1.003 (1.001-1.035); Urobilinogen,Urine <2.0 mg/dL (<2.0)
[2020-04-07 16:56] VITALS: BP 145/85; PULSE 72; RESP 12
== END 2020-04-07 17:02 | disposition home or self-care (01) ==
LOC: EC 14:23
DX: R55 Syncope and collapse (principal); R53.83 Other fatigue; R51 Headache; E07.9 Disorder of thyroid, unspecified; F32.9 Major depressive disorder, single episode, unspecified; Z79.890 Hormone replacement therapy; Z79.899 Other long term (current) drug therapy; Z88.1 Allergy status to other antibiotic agents; Z91.048 Other nonmedicinal substance allergy status; Z88.8 Allergy status to other drugs, medicaments and biological substances
CPT/HCPCS: 36415; 70450; 71046; 80053; 81003; 83735; 84484; 85025; 85610; 85730; 93005; 96360; 96361; 99284

== ENCOUNTER → 2021-05-21 | Outpatient (CLI) | payer MEDICAID ==
[2021-05-21 14:27] LABS: HCT 39.1 % (37.2-46.3); HGB 12.1 g/dL (12.0-15.0); MCH 28.5 pg (27.0-32.0); MCHC 30.9 g/dL (32.0-37.0); Mean Platelet Volume 10.9 fL (9.5-12.2); Platelet Count 248 X 10*3/uL (140-440); RBC 4.25 X 10*6/uL (4.10-5.20); RDW 13.6 % (11.5-14.5); WBC 5.02 X 10*3/uL (4.50-10.00)
[2021-05-22 03:50] LABS: African American GFR (CKD) 78.3 (60.0-200.0); Albumin 4.4 g/dL (3.80-4.90); Albumin/Globulin Ratio 2.1 (1.60-3.17); Anion Gap 10.8 mmol/L (4.00-12.00); BUN/Creat Ratio 15.56 Ratio (12.00-20.00); Calcium 9.1 mg/dL (8.7-10.3); Carbon Dioxide 26.2 mmol/L (21.6-31.8); Chol/HDL Ratio 4.75; Globulin 2.1 g/dL (1.6-3.3); LDL Cholesterol,Calculated 131.4 mg/dL (0.0-131.0); Non-African American GFR(CKD) 67.6 (60.0-200.0); Potassium 4.4 mmol/L (3.5-5.5); Total Bilirubin 0.6 mg/dL (0.3-1.2); Total Protein 6.5 g/dL (6.2-8.2); VLDL Calculation 18.6 mg/dL (5.00-40.00)
[2021-05-22 03:59] LABS: T4, Free (Free Thyroxine) 1.3 ng/dL (0.80-1.80)
== END | disposition home or self-care (01) ==
LOC: LABWHC1 08:28
PROVIDERS: ATTEND Psychiatry & Neurology Psychiatry
DX: E03.9 Hypothyroidism, unspecified (principal)
CPT/HCPCS: 36415; 80053; 80061; 84439; 84443; 85027

== ENCOUNTER → 2021-09-14 | Outpatient (CLI) | payer MEDICAID | END | disposition home or self-care (01) | LOC: LABWHC1 08:32 | PROVIDERS: ATTEND Psychiatry & Neurology Psychiatry | DX: R73.9 Hyperglycemia, unspecified (principal) | CPT/HCPCS: 36415; 83036 ==

== ENCOUNTER → 2022-04-18 | Outpatient (CLI) | payer MEDICAID ==
--- NOTE | 2022-04-18 20:09 | BD ---
EXAMINATION TYPE: Axial Bone Density DATE OF EXAM: 04/18/2022 CLINICAL HISTORY: 66 year old Female. ICD-10 CODE: Z78.0 MENOPAUSAL STATE Height: 66 Weight: 219.9 FRAX RISK QUESTIONS: Alcohol (3 or more units per day): no Family History (Parent hip fracture): no Glucocorticoids (More than 3mos): no (Ex: prednisone, prednisolone, methylprednisolone, dexamethasone, and hydrocortisone). History of Fracture in Adulthood: yes Secondary Osteoporosis: 1. Type 1 Diabetes: no 2. Hyperthyroidism: no 3. Menopause before 45: no 4. Malnutrition: no 5. Chronic liver disease: no Rheumatoid Arthritis: no Current Tobacco Use: no RISK FACTORS HISTORY OF: History of Wrist Fracture: right wrist When: age 43 Surgery to Spine/Hip(right/left)/Wrist (right/left): no Family History of Osteoporosis: yes Active: yes Diet low in dairy products/other sources of calcium: yes Postmenopausal woman: yes Lost more than 2 inches in height since high school: no MEDICATIONS: Thyroid Medications: levothyroxine How Lon years Additional History: EXAM MEASUREMENTS: Bone mineral densitometry was performed using the [employer] (FIG) System. Bone mineral density as measured about the Lumbar spine is: ----- L1-L4(G/cm2): 0.806 T Score Values are as follows: ----- L1: -3.0 ----- L2: -3.1 ----- L3: -3.2 ----- L4: -3.4 ----- L1-L4: -3.1 Bone mineral density has: decreased -10.3 % since study of: 10.29.2004 Bone mineral density about the R hip (g/cm2): 0.731 Bone mineral density about the L hip (g/cm2): 0.760 T Score values are as follows: -----R Neck: -2.2 -----L Neck: -2.0 -----R Total: -1.3 -----L Total: -1.5 Bone mineral density has: decreased -8.4 % since study of: 10.29.2004 FRAX%s: The graph provided illustrates a 17.7% chance for a major osteoporotic fx and a 3.0% chance f or the hips probability for fx in 10 years time. IMPRESSION: Osteoporosis (T Score less than -2.5). There is increased fracture risk and therapy is usually indicated based on age. Re-Screen 1-2 years. NOTE: T-SCORE=SD OF THE YOUNG ADULT MEAN.
--- NOTE | 2022-04-19 10:48 | MM ---
Reason for Exam: Screening (asymptomatic). Last mammogram was performed 4 year(s) and 11 month(s) ago. Patient History: Menarche at age 15. First Full-Term at age 29. Postmenopausal. Risk Values: Sharon 5 year model risk: 1.7%. NCI Lifetime model risk: 6.3%. Prior Study Comparison: 10/29/2004 Bilateral Screening Mammogram, [facility]. 12/25/2008 Bilateral Screening Mammogram, [facility]. 05/30/2017 Bilateral Screening Mammogram, [facility]. Tissue Density: The breast tissue is heterogeneously dense. This may lower the sensitivity of mammography. Findings: Analyzed By CAD. There is no suspicious group of microcalcifications or new suspicious mass in either breast. Overall Assessment: Negative, BI-RAD 1 Management: Screening Mammogram of both breasts in 1 year. A clinical breast exam by your physician is recommended on an annual basis and results should be correlated with mammographic findings. Electronically signed and approved by: Yeison Perera DO
== END | disposition home or self-care (01) ==
LOC: RADMAMWWP 14:44
PROVIDERS: ATTEND Family Medicine
DX: Z12.39 Encounter for other screening for malignant neoplasm of breast (principal); M81.0 Age-related osteoporosis without current pathological fracture; Z78.0 Asymptomatic menopausal state
CPT/HCPCS: 77063; 77067; 77080

== ENCOUNTER 2022-08-30 09:45 | Day surgery (SDC) | payer MEDICAID ==
[2022-08-25 15:38] VITALS: BMI 33.3
[~2022-08-30 09:45] MED LIST changes: -ACETAMINOPHEN TAB 500 MG TAB PO ONE; -CLINDAMYCIN 900 MG in DEXTROSE 5% IN WATER 50 ML IVPB ONE; -DEXAMETHASONE SOD PHOSPHATE 10 MG/ML 1 ML VIAL IV ONE; -HYDROmorphone 1 MG/ML 1 ML SYRINGE IVP PRN; +LACTATED RINGERS 1,000 ML IV SCH; +LIDOCAINE 1% (10MG/ML) FOR IV START INTRADERMA PRN; -MELOXICAM 7.5 MG TAB PO ONE; -MIDAZOLAM 2 MG/2 ML VIAL IV PRN; -ONDANSETRON 4 MG/2 ML VIAL IVP ONE; -SCOPOLAMINE 1.5MG/72HR PATCH TRANSDERM ONE; -TRANEXAMIC ACID 1,000 MG in SODIUM CHLORIDE 0.9% 100 ML IVPB ONE
[2022-08-30] MEDS ORDERED: PROPOFOL 10 MG/ML 20 ML VIAL IV ONE (11:10)
[2022-08-30] MEDS ORDERED: LIDOCAINE 2% INJ 20 MG/ML (2 ML VIAL) ONE (11:10)
[2022-08-30 11:11] VITALS: RESP 16; TEMP 97.1
--- NOTE | 2022-08-30 11:15 | P.GSHP ---
History of Present Illness H&P Date: 08/30/22 Chief Complaint: Colon cancer screening 66-year-old female here today for colonoscopy. Last colonoscopy 5 years ago she says. That study was reportedly normal. No family history of colon cancer. No bowel complaints. Past Medical History Past Medical History: Fibromyalgia, Osteoarthritis (OA), Thyroid Disorder History of Any Multi-Drug Resistant Organisms: None Reported Past Surgical History: Cholecystectomy, Joint Replacement Additional Past Surgical History / Comment(s): Donaldo fundoplasty, 10-03-16 total lt knee replacment, COLONOSCOPY Past Anesthesia/Blood Transfusion Reactions: Postoperative Nausea & Vomiting (PONV) Smoking Status: Never smoker - Past Family History Father Family Medical History: Cancer Additional Family Medical History / Comment(s): lung Medications and Allergies Home Medications Medication Instructions Recorded Confirmed Type Escitalopram [Lexapro] 10 mg PO DAILY 09/21/16 08/30/22 History Pregabalin [Lyrica] 200 mg PO BID 09/21/16 08/30/22 History Venlafaxine HCl [Effexor XR] 150 mg PO QAM 09/21/16 08/30/22 History traZODone HCL 100 mg PO HS 09/21/16 08/30/22 History Levothyroxine Sodium [Synthroid] 137 mcg PO DAILY 04/07/20 08/30/22 History Allergies Allergy/AdvReac Type Severity Reaction Status Date / Time Iodinated Contrast Media Allergy Severe Dyspnea Verified 08/30/22 10:46 adhesive tape Allergy Rash/Hives Verified 04/07/20 17:02 cephalexin [From Keflex] Allergy Nausea & Verified 08/25/22 15:31 Vomiting & Diarrhea cetirizine [From Zyrtec] Allergy Rash/Hives Verified 04/07/20 17:02 Iodine and Iodide Containing Allergy blister Verified 08/30/22 10:46 Produc Surgical - Exam Vital Signs Temp Pulse Resp BP Pulse Ox 97.1 F L 76 16 155/74 98 08/30/22 10:41 08/30/22 10:41 08/30/22 10:41 08/30/22 10:41 08/30/22 10:41 Physical exam: General: Well-developed, well-nourished HEENT: Normocephalic, sclerae nonicteric Abdomen: Nontender, nondistended Extremities: No edema Neuro: Alert and oriented Assessment and Plan (1) Colon cancer screening Narrative/Plan: Will proceed with colonoscopy at this time. Current Visit: Yes Status: Acute Code(s): Z12.11 - ENCOUNTER FOR SCREENING FOR MALIGNANT NEOPLASM OF COLON SNOMED Code(s): 402951197
--- NOTE | 2022-08-30 11:37 | P.PCN ---
Date of Procedure: 08/30/22 Procedure(s) Performed: PREOPERATIVE DIAGNOSIS: Colon cancer screening POSTOPERATIVE DIAGNOSIS: Normal exam PROCEDURE: Colonoscopy ANESTHESIA: MAC SURGEON: Miah Mendoza M.D. SPECIMENS: None ENDOSCOPIC PROCEDURE: The patient was placed on the endoscopy table in the left decubitus position. The Olympus colonoscope was inserted into the anus and passed under direct visualization to the base of the cecum. The appendiceal orifice was visualized. From that point the scope was slowly withdrawn inspecti ng all surfaces carefully. There were no neoplastic inflammatory or polypoid lesions throughout the cecum, ascending, transverse, descending, sigmoid and rectum. There was no visible diverticulosis noted. Digital rectal examination was normal. The patient was taken to the recovery room in stable condition per anesthesia guidelines. RECOMMENDATIONS: Resume diet. Repeat colonoscopy in 10 years.
[2022-08-30 11:51] VITALS: BP 127/79; PULSE 72
== END 2022-08-30 12:04 | disposition home or self-care (01) ==
LOC: ORWHC2ENDO 09:45
PROVIDERS: ATTEND Surgery
DX: Z12.11 Encounter for screening for malignant neoplasm of colon (principal); M79.7 Fibromyalgia; M19.90 Unspecified osteoarthritis, unspecified site; E07.9 Disorder of thyroid, unspecified; Z96.652 Presence of left artificial knee joint; Z90.49 Acquired absence of other specified parts of digestive tract; Z98.890 Other specified postprocedural states; Z80.2 Family history of malignant neoplasm of other respiratory and intrathoracic organs; Z79.891 Long term (current) use of opiate analgesic; Z79.890 Hormone replacement therapy; Z79.899 Other long term (current) drug therapy; Z91.041 Radiographic dye allergy status; Z91.048 Other nonmedicinal substance allergy status; Z88.1 Allergy status to other antibiotic agents; Z88.8 Allergy status to other drugs, medicaments and biological substances
CPT/HCPCS: 45378; J2704; J2001; G0121

== ENCOUNTER → 2024-01-04 | Outpatient (CLI) | payer MEDICARE ==
--- NOTE | 2024-01-05 11:19 | MM ---
Reason for Exam: Screening (asymptomatic). Last mammogram was performed 1 year(s) and 9 month(s) ago. Patient History: Menarche at age 15. First Full-Term at age 29. Postmenopausal. Risk Values: Sharon 5 year model risk: 1.7%. NCI Lifetime model risk: 5.9%. Prior Study Comparison: 12/25/2008 Bilateral Screening Mammogram, [facility]. 05/30/2017 Bilateral Screening Mammogram, [facility]. 04/18/2022 Bilateral MG 3D screening mammo w/cad, [facility]. Tissue Density: The breasts are heterogeneously dense, which may obscure small masses. Findings: Analyzed By CAD. There is no suspicious group of microcalcifications or new suspicious mass in either breast. Benign-appearing calcifications bilaterally. Overall Assessment: Benign, BI-RAD 2 Management: Screening Mammogram of both breasts in 1 year. . Patient should continue monthly self-breast exams. A clinical breast exam by your physician is recommended on an annual basis. This exam should not preclude additional follow-up of suspicious palpable abnormalities. Note on Sharon scores and lifetime risk: 1. A Sharon score greater than 3% is considered moderate risk. If this is the case, consider specialist referral to assess eligibility for a risk reducing agent. 2. If overall lifetime risk for the development of breast cancer is 20% or higher, the patient may qualify for future screening with alternating mammogram and breast MRI. Electronically signed and approved by: Evin Pickens M.D. Radiologis
== END | disposition home or self-care (01) ==
LOC: RADMAMWWP 08:52
PROVIDERS: ATTEND Family Medicine
DX: Z12.31 Encounter for screening mammogram for malignant neoplasm of breast (principal); Z78.0 Asymptomatic menopausal state
CPT/HCPCS: 77063; 77067

== ENCOUNTER → 2024-05-23 | Outpatient (CLI) | payer MEDICARE ==
--- NOTE | 2024-05-23 20:11 | MR ---
EXAMINATION TYPE: MR lumbar spine wo con DATE OF EXAM: 05/23/2024 COMPARISON: None HISTORY: back pain for years that travels down pt's left buttocks and both thighs CONTRAST: 0 mL intravenous . TECHNIQUE: Multiplanar, multisequence images of the lumbar spine were acquired. FINDINGS: Cord terminates at the L1 level. Disc heights are preserved. Vertebral body heights are pr eserved. Diffuse disc desiccation is present throughout the lumbar spine. L5-S1: Mild disc bulge is present with mild anterior thecal sac impression. No AP spinal canal stenos is present. Facet hypertrophy is present with left mild posterior lateral thecal sac compression. Ne ural foramen are patent.. L4-L5: No significant disc bulge or disc herniation. No spinal canal stenosis. No foraminal stenosi s. Neural foramen are patent.. L3-L4: No significant disc bulge or disc herniation. No spinal canal stenosis. No foraminal stenosi s. Some facet hypertrophy is present with minimal posterior lateral thecal sac compression from ligam entum flavum laxity. L2-L3: No significant disc bulge or disc herniation. No spinal canal stenosis. No foraminal stenosi s. Neural foramen are patent.. L1-L2: No significant disc bulge or disc herniation. No spinal canal stenosis. No foraminal stenosi s. Neural foramen are patent.. T12-L1: No significant disc bulge or disc herniation. No spinal canal stenosis. No foraminal stenos is. Neural foramen are patent.. IMPRESSION: 1. Mild disc bulge L5-S1 without stenosis. 2. Mild facet hypertrophy L5-S1 and L3-4. [facility], , 05/23/2024 8:09 PM
== END | disposition home or self-care (01) ==
LOC: RADMRIMAIN 13:10
PROVIDERS: ATTEND Orthopaedic Surgery
DX: M54.50 Low back pain, unspecified
CPT/HCPCS: 72148

== ENCOUNTER → 2024-07-04 | Outpatient (CLI) | payer MEDICARE ==
[2024-07-04 08:45] VITALS: BP 145/82; PULSE 101; RESP 16; TEMP 97.1
--- NOTE | 2024-07-08 07:38 | P.PAINPG ---
PQRS Measure Charge Sheet Comment: HISTORY OF PRESENT ILLNESS: A 68 yr old female w at side as a referral from Dr Sarkar presents today w severe and chronic LBP > 3 mo secondary to radiculopathy, spondylosis and facet arthropathy without myelopathy for evaluation. Pt states pain level is provoked at 9 /10 in intensity, constant, localized in the lumbar spine, predominantly axial, achy in character w occasional shooting pain towards the buttocks, hips and LEs. Pain is provoked by bending, lifting. Pain is alleviated by PT x 6 wks which ended in Jun 2024, physician guided home exercises 4-5 times weekly since Jun 2024, medications, repositioning and rest . PMH: OA, Fibromyalgia, Hypothyroidism, MDD PSH: Colonoscopy (2021), Cholecystectomy, L Total Knee Repalcement, Indra Fundoplasty (2016) SH: Negative x3 FH: Fa- Lung Ca All: See list Meds: See list including Ibu, Lyrica REVIEW OF ORGAN SYSTEMS: CONSTITUTIONAL: No fevers or chills. No recent weight loss. NEUROLOGICAL: + numbness and tingling along the distal extremities. No seizure disorders or headaches. MUSCULOSKELETAL: + pain PSYCHIATRIC: Denies current depression or suicidal thoughts. Physical Examinations : Constitutional : Cooperative , not in acute distress . Neurologic : Cranial nerve II to XII intact. No focal neurological deficits. Psychiatric : alert & oriented x 3. Matching mood & appropriate affect. Judgment & insight intact. Musculoskeletal : Cervical Spine Motor strength in the deltoid and biceps: Normal right side. Normal Left side Motor strength biceps and the wrist extensors: Normal right side . Normal left side Motor strength in the triceps muscle: Normal right side. Normal left side Deep tendon reflexes: Normal at the biceps. Normal at Brachioradialis. Normal at triceps Vertebral body tenderness to deep palpation over Cervical facet loading test: positive bilaterally Spurling test: positive bilaterally Neck distraction test: positive bilaterally Izzy sign: positive bilaterally Lumbar spine Motor strength lower extremities ,thigh and legs 5/5 Right side , 5/5 Left side Deep tendon reflexes : Normal Knee Jerk. Normal Ankle Jerk Vertebral body tenderness over L5 Pretty Test positive L5- S1 BL Lumbar facet Loading Test: positive Right / positive Left Range of motion of the lumbar spine Flexion 30 degrees, extension 10 degrees Straight Leg Raise test: Left/ Right positive at degrees Jailene test: positive right / positive left. Severe tenderness over the Sacroiliac joint on the Right / Left sides Gaenslen test: positive bilaterally Seated flexion test: positive bilaterally. Sacral spine : Severe tenderness over the Sacroiliac joint: right side / left side Range of motion: Flexion of the lumbar spine <60 degrees Range of motion: Extension of the lumbar spine <20 degrees Gaenslen's Test positive Jailene test: positive right side / left side Thigh Thrust Test Sacral Thrust Test Imaging: MRI non contrast lumbar spine from 05/23/24 reviewed Assessment/ Plan : Lumbar radiculopathy Recommendation of BL TFESI L5-S1 #1. Would also benefit from JOSELO L3-L4 . Risks, benefits of procedure discussed and patient verbalized understanding. Admits to anti- coagulant use or medical history of diabetes. Protocol for discontinuation/ continuation of medications gladis procedure discussed. All questions answered. I have spent greater than 30 minutes on patient care today. Dr Rajput was available by phone for the evaluation of this patient. The time was used to review the medical records including relevant urine studies and Prescription history (MAPs), review of the available imaging, evaluation and examination of the patient, coordination of care with the medical staff and if applicable referring physicians, as well as creation of the medical record PQRS Narrative: Smoking Status Never smoker Home Medications: Ambulatory Orders Escitalopram [Lexapro] 10 mg PO DAILY 09/21/16 Pregabalin [Lyrica] 200 mg PO BID 09/21/16 Venlafaxine HCl [Effexor XR] 150 mg PO QAM 09/21/16 traZODone HCL 100 mg PO HS 09/21/16 Levothyroxine Sodium [Synthroid] 137 mcg PO DAILY 04/07/20 Ibuprofen [Motrin] 600 mg PO Q6HR PRN 07/04/24 Pregabalin [Lyrica] 200 mg PO BID 07/04/24 Controlled Substance Measures - Controlled Substance Measures Is patient prescribed a controlled substance at discharge?: No
== END ==
LOC: PNWHC3 08:26
PROVIDERS: ATTEND Specialist
DX: M47.26 Other spondylosis with radiculopathy, lumbar region (principal); M46.96 Unspecified inflammatory spondylopathy, lumbar region; Z91.041 Radiographic dye allergy status; Z91.048 Other nonmedicinal substance allergy status; Z88.1 Allergy status to other antibiotic agents; Z88.8 Allergy status to other drugs, medicaments and biological substances
CPT/HCPCS: 99211

== ENCOUNTER 2024-07-18 07:01 | Day surgery (SDC) | payer MEDICARE ==
[2024-07-16 09:57] VITALS: BMI 33.5
[~2024-07-18 07:01] MED LIST changes: -LIDOCAINE 1% (10MG/ML) FOR IV START INTRADERMA PRN
[2024-07-18 07:27] VITALS: TEMP 98.2
[2024-07-18] MEDS ORDERED: ALPRAZolam 0.5 MG TAB PO STA (07:27)
[2024-07-18] MEDS ORDERED: DEXAMETHASONE SOD PHOSPHATE 10 MG/ML 1 ML VIAL ONE (07:56)
--- NOTE | 2024-07-18 08:12 | P.PCN ---
Date of Procedure: 07/18/24 Description of Procedure: PREOPERATIVE DIAGNOSIS: Lumbar radiculopathy,and lumbar spondylosis without myelopathy POSTOPERATIVE DIAGNOSIS: Lumbar radiculopathy, and lumbar spondylosis without myelopathy PROCEDURE: 1) bilateral L5-S1 Transforaminal epidural steroid injection under fluoroscopic guidance , 2) Epidurogram SURGEON: Mariah Dupont MERGERS AND ACQUISITIONS BANKER: None ANESTHESIA: Local , and IV sedationas: None EBL: None. Specimen removed: None Fluoroscopic image: Saved to electronic medical records PROCEDURE INDICATION: The patient with continued lumbar pain with radiculopathy, and intervertebral disc disease without myelopathy that has failed to respond to adequate conservative management. Came here for repeat procedure. PROCEDURE DESCRIPTION: The patient was seen and identified in the preoperative area. Risks, benefits, complications, and alternatives were discussed with the patient. The patient agreed to proceed with the procedure and signed the consent. IV was started, and vital signs were stable. Patient was taken to the OR and time out was completed. The patient was placed in the prone position on procedure table and a pillow was placed under the abdomen to reduce lumbar lordosis. The lumbosacral area was prepped with ChloraPrep 1 and draped in the usual sterile fashion. Critical pause was taken. Vital signs were closely monitored during the procedure. Using 20 degree ipsilateral oblique fluoroscopy, the chin of the Cesar dog of right side L5 was identified, and the skin and deeper tissues just below was localized with 1% lidocaine. 22-guage 5-inch spinal needle was used for the procedure. The needle was guided by fluoroscopy just underneath the chin of the Cesar dog of L5. Under AP fluoroscopy, the needle was advanced to the 6 o'clock position of the L5 pedicle , in lateral view the tip of the needle position conformed. After negative aspiration of CSF and blood and with no paresthesias, 0.5 mL of Gadavist contrast dye was injected at each level with excellent anterior epidural spread and outlining of the L5 nerve root, 3 mL of block solution was injected. Block solution contained 8 mg of dexamethasone with 2 mL of normal saline preservative-free. Needle was removed intact. Entire procedure repeated on the left side. skin was cleansed, and bandages were applied. Dexamethasone used for the procedure 8+8 = 16 mg COMPLICATIONS: None. DISPOSITION : The patient was placed in a supine position and transferred to the recovery area in a stable condition for observation and was discharged from the recovery room after meeting discharge criteria. Home discharge instructions given to the patient by the staff. The patient was reexamined prior to discharge. The patient will schedule follow-up in the clinic in 4 weeks' duration
[2024-07-18] MEDS ORDERED: LACTATED RINGERS 1,000 ML IV SCH (08:15)
[2024-07-18 08:31] VITALS: BP 137/79; PULSE 73; RESP 17
--- NOTE | 2024-07-18 09:38 | FL ---
EXAMINATION TYPE: FL guided pain mgmt statistic DATE OF EXAM: 07/18/2024 8:13 AM COMPARISON: Pre Operative Images if available both CT/MRI or plain film CLINICAL INDICATION: Female, 68 years old with history of Transforaminal Inj; TECHNIQUE: FL guided pain mgmt statistic, multiple fluoroscopic images provided for procedure. Total fluoroscopy time: 28 seconds Total submitted images to PACS: 6 DAP: 0.95631 mGym2 Gycm2 uGym2 cGycm2 or equivalent. FINDINGS: Fluoroscopic images during injection for pain management demonstrate multilevel degeneration changes throughout the spine. No evidence for fracture. No acute process identified. IMPRESSION: 1. No evidence for intraoperative complication. 2. Please see the operative/procedural note for further details. [facility], , 07/18/2024 9:35 AM
== END 2024-07-18 08:42 | disposition home or self-care (01) ==
LOC: ORPAIN 07:01
DX: M47.26 Other spondylosis with radiculopathy, lumbar region (principal); Z88.8 Allergy status to other drugs, medicaments and biological substances; Z88.1 Allergy status to other antibiotic agents
CPT/HCPCS: 64483; J1100

== ENCOUNTER → 2024-08-08 | Outpatient (CLI) | payer MEDICARE ==
[2024-08-08 09:36] VITALS: BP 126/83; PULSE 101; RESP 18; TEMP 97.9
--- NOTE | 2024-08-08 15:18 | P.PAINPG ---
PQRS Measure Charge Sheet Comment: HISTORY OF PRESENT ILLNESS: A 68 yr old female w at side presents today w severe and chronic LBP > 3 mo secondary to radiculopathy, spondylosis and facet arthropathy without myelopathy for evaluation s/p BL TFESI L5-S1 #1. Pt states she experienced 50 % pain relief x 2 wks s/p procedure. Pt states pain level is provoked at 9 /10 in intensity, constant, localized in the lumbar spine, predominantly axial, achy in character w occasional shooting pain towards the buttocks, hips and LEs. Pain is provoked by bending, lifting. Pain is alleviated by PT x 6 wks which ended in Jun 2024, physician guided home exercises 4-5 times weekly since Jun 2024, medications, repositioning and rest . Interventional procedures include BL TFESI L5-S1 x1 Medications include Ibu, Lyrica REVIEW OF ORGAN SYSTEMS: CONSTITUTIONAL: No fevers or chills. No recent weight loss. NEUROLOGICAL: + numbness and tingling along the distal extremities. No seizure disorders or headaches. MUSCULOSKELETAL: + pain PSYCHIATRIC: Denies current depression or suicidal thoughts. Physical Examinations : Constitutional : Cooperative , not in acute distress . Neurologic : Cranial nerve II to XII intact. No focal neurological deficits. Psychiatric : alert & oriented x 3. Matching mood & appropriate affect. Judgment & insight intact. Musculoskeletal : Cervical Spine Motor strength in the deltoid and biceps: Normal right side. Normal Left side Motor strength biceps and the wrist extensors: Normal right side . Normal left side Motor strength in the triceps muscle: Normal right side. Normal left side Deep tendon reflexes: Normal at the biceps. Normal at Brachioradialis. Normal at triceps Vertebral body tenderness to deep palpation over Cervical facet loading test: positive bilaterally Spurling test: positive bilaterally Neck distraction test: positive bilaterally Izzy sign: positive bilaterally Lumbar spine Motor strength lower extremities ,thigh and legs 5/5 Right side , 5/5 Left side Deep tendon reflexes : Normal Knee Jerk. Normal Ankle Jerk Vertebral body tenderness over L4 Pretty Test positive L3-L4 BL Lumbar facet Loading Test: positive Right / positive Left Range of motion of the lumbar spine Flexion 30 degrees, extension 10 degrees Straight Leg Raise test: Left/ Right positive at degrees Jailene test: positive right / positive left. Severe tenderness over the Sacroiliac joint on the Right / Left sides Gaenslen test: positive bilaterally Seated flexion test: positive bilaterally. Sacral spine : Severe tenderness over the Sacroiliac joint: right side / left side Range of motion: Flexion of the lumbar spine <60 degrees Range of motion: Extension of the l umbar spine <20 degrees Gaenslen's Test positive Jailene test: positive right side / left side Thigh Thrust Test Sacral Thrust Test Imaging: MRI non contrast lumbar spine from 05/23/24 reviewed Assessment/ Plan : Lumbar radiculopathy Recommendation of JOSELO L3-L4 #2. Risks, benefits of procedure discussed and patient verbalized understanding. Admits to anti- coagulant use or medical history of diabetes. Protocol for discontinuation/ continuation of medications gladis procedure discussed. All questions answered. I have spent greater than 30 minutes on patient care today. Dr Rajput was available by phone for the evaluation of this patient. The time was used to review the medical records including relevant urine studies and Prescription history (MAPs), review of the available imaging, evaluation and examination of the patient, coordination of care with the medical staff and if applicable referring physicians, as well as creation of the medical record - Pain Location Lower Back Pharmacological Interventions: Epidural PQRS Narrative: Smoking Status Never smoker Hx Alcohol Use (MH) No Home Medications: Ambulatory Orders Escitalopram [Lexapro] 10 mg PO DAILY 09/21/16 Venlafaxine HCl [Effexor XR] 150 mg PO QAM 09/21/16 traZODone HCL 100 mg PO HS 09/21/16 Levothyroxine Sodium [Synthroid] 137 mcg PO DAILY 04/07/20 Ibuprofen [Motrin] 600 mg PO Q6HR PRN 07/04/24 Pregabalin [Lyrica] 200 mg PO BID 07/04/24 diazePAM [Valium] 5 mg PO DAILY PRN 1 Days #2 tab 08/08/24 Controlled Substance Measures - Controlled Substance Measures Is patient prescribed a controlled substance at discharge?: Yes When asked, does pt state using other controlled substances?: No If prescribed controlled substance>3 days was MAPS reviewed?: Prescribed <3 Days
== END ==
LOC: PNWHC3 09:14
PROVIDERS: ATTEND Specialist
DX: M54.16 Radiculopathy, lumbar region (principal); Z91.041 Radiographic dye allergy status; Z91.048 Other nonmedicinal substance allergy status; Z88.1 Allergy status to other antibiotic agents; Z88.8 Allergy status to other drugs, medicaments and biological substances
CPT/HCPCS: 99211

== ENCOUNTER 2024-08-22 06:33 | Day surgery (SDC) | payer MEDICARE ==
[2024-08-21 11:42] VITALS: BMI 34.9
[2024-08-22 07:13] VITALS: RESP 16; TEMP 97.8
[2024-08-22] MEDS ORDERED: methylPREDNISolone ACETATE 80 MG/ML 1 ML VIAL ONE (07:28)
--- NOTE | 2024-08-22 07:36 | P.PCN ---
Date of Procedure: 08/22/24 Procedure(s) Performed: PREOPERATIVE DIAGNOSIS: 1- Lumbar Degenerative Disc Diseases 2-Lumbar spondylosis with Facet arthropathy without myelopathy. 3-lumbar radiculopathy POSTOPERATIVE DIAGNOSIS: 1-lumbar degenerative disc disease. 2-lumbar spondylosis with facet arthropathy without myelopathy. 3-lumbar radiculopathy PROCEDURE 1. Lumbar epidural steroid injection under fluoroscopic guidance at the L3-4 level. (Fluoroscopy imaging was available in radiology department) ANESTHESIA: Lidocaine 1% 3 and then only. EBL: Minimal PROCEDURE INDICATION: The patient with low back pain and radiculitis symptoms unresponsive to conservative treatment. Fluoroscopy was used to optimize visualization of the needle placement and to maximize safety. PROCEDURE DESCRIPTION / TECHNIQUE: The patient was seen and identified in the preoperative area. Risks, benefits, complications including but not limited to infections ,bleeding ,allergic reaction to the medications ,nerve damage and not complete pain releife , and alternatives were discussed with the patient. The patient agreed to proceed with the procedure and signed the consent, and vital signs were stable. Patient was taken to the OR and time out was completed. The patient was placed in the prone position on procedure table and a pillow was placed under the abdomen to reduce lumbar lordosis. The lumbosacral area was prepped and draped in the usual sterile fashion.ere closely monitored during the procedure. Vital signs was monitered during the entire procedure. Using anterior-posterior fluoroscopy, the L3-4 interlaminar space was identified and the skin over this site was marked and then infiltrated with 1% lidocaine subcutaneously. Subsequently, a 20-gauge Tuohy epidural needle was inserted and advanced toward the epidural space using the ``Loss of resistance technique and guided by AP and lateral fluoroscopy, after negative aspiration for blood and CSF and in the absence of paresthesias. Again after negative aspiration, a 5 ml mixture containing 60 mg of Depo-medrol ( Preservetive Free ), and 2 ml of preservative free Normal Saline, and 2 ml of preservative free lidocaine 1% solution was injected and a washout of epidurogram was seen. Needle was withdrawn intact, skin was cleansed, and bandages were applied. COMPLICATIONS: None DISPOSITION / PLANS: The patient was placed in a supine position and transferred to the recovery area in a stable condition for observation. There was no evidence of lower extremity motor or sensory deficit after the procedure. Patient was discharged from the recovery room after meeting discharge criteria. Home discharge instructions were given to the patient by the staff. The patient was reexamined prior to discharge. The patient will schedule a follow up in the clinic in 2-4 weeks. note= Isovue was not injected, because patient had allergy to iodinated contrast media.
[2024-08-22 07:44] VITALS: BP 138/60; PULSE 85
--- NOTE | 2024-08-22 08:40 | FL ---
EXAMINATION TYPE: FL guided pain mgmt statistic DATE OF EXAM: 08/22/2024 7:43 AM COMPARISON: Pre Operative Images if available both CT/MRI or plain film CLINICAL INDICATION: Female, 68 years old with history of Lumbar Epid Inj; TECHNIQUE: FL guided pain mgmt statistic, multiple fluoroscopic images provided for procedure. Total fluoroscopy time: 10.00 seconds Total submitted images to PACS: 1 DAP: 0.15463 mGym2 Gycm2 uGym2 cGycm2 or equivalent. FINDINGS: Fluoroscopic images during injection for pain management demonstrate multilevel degeneration changes throughout the spine. No evidence for fracture. No acute process identified. IMPRESSION: 1. No evidence for intraoperative complication. 2. Please see the operative/procedural note for further details. [facility], , 08/22/2024 8:37 AM
== END 2024-08-22 07:59 | disposition home or self-care (01) ==
LOC: ORPAIN 06:33
PROVIDERS: ATTEND Specialist
DX: M47.26 Other spondylosis with radiculopathy, lumbar region (principal); L23.1 Allergic contact dermatitis due to adhesives; Z88.1 Allergy status to other antibiotic agents; Z91.041 Radiographic dye allergy status; Z88.9 Allergy status to unspecified drugs, medicaments and biological substances
CPT/HCPCS: 62323; J1010

== ENCOUNTER → 2024-11-25 | Day surgery (SDC) | payer MEDICARE ==
[~2024-11-25] MED LIST changes: +DEXAMETHASONE SOD PHOSPHATE 4 MG/ML 1 ML VIAL IV ONE; +HYDROmorphone 0.5 MG/0.5 ML SYRINGE IVP PRN; -LACTATED RINGERS 1,000 ML IV SCH; +MIDAZOLAM 2 MG/2 ML VIAL IV PRN; +Pre Op ABX Message 1 EACH MISC MISCELLANE ONE
[2024-11-25] MEDS: IV FLUID CONTINUATION 1,000 ML IV ONE (10:51)
[2024-11-25 10:53] VITALS: TEMP 97.9
[2024-11-25 11:03] LABS: Glucose,Whole Blood 139 mg/dL (70-110)
[2024-11-25] MEDS: ONDANSETRON 4 MG/2 ML VIAL IVP ONE (11:03)
[2024-11-25] MEDS: LACTATED RINGERS 1,000 ML IV SCH (11:03)
[2024-11-25] MEDS: LIDOCAINE 2%-EPI 1:100,000 20 ML VIAL SQ ONE (11:48)
[2024-11-25] MEDS: BUPIVACAINE (PF) 0.5% 30 ML VIAL SQ ONE (11:48)
[2024-11-25] MEDS: methylPREDNISolone ACETATE 40 MG/ML 1 ML VIAL INJ ONE (11:51)
[2024-11-25] MEDS: IOPAMIDOL-370 100ML BTL MISCELLANE ONE (11:53)
[2024-11-25 12:09] VITALS: RESP 20
[2024-11-25 12:39] VITALS: BP 128/69; PULSE 93
--- NOTE | 2024-11-25 12:41 | FL ---
EXAMINATION TYPE: FL guidance operating room, XR sacroiliac joint comp BILAT DATE OF EXAM: 11/25/2024 12:37 PM COMPARISON: Pre Operative Images if available both CT/MRI or plain film CLINICAL INDICATION: Female, 69 years old with history of LOW BACK PAIN; TECHNIQUE: FL guidance operating room, XR sacroiliac joint comp BILAT, multiple fluoroscopic images p rovided for procedure. DAP: 4.6657 mGym2 Gycm2 uGym2 cGycm2 or equivalent. FINDINGS: Fluoroscopic images during injection for pain management demonstrate multilevel degeneration changes throughout the spine. No evidence for fracture. No acute process identified. IMPRESSION: 1. No evidence for intraoperative complication. 2. Please see the operative/procedural note for further details. [facility], , 11/25/2024 12:39 PM
--- NOTE | 2024-11-25 16:40 | P.HPOR ---
History of Present Illness H&P Date: 11/25/24 .D:Date: 10/21/24 : 04:29pm .T:Title: RECHECK H1 [facility] [address] [place] [id number]| PROVIDER: SAUL GOLD DO CLINICAL SUMMARY: Ms. Walsh is a 68-year-old retired female who presents for follow-up evaluation of chronic lumbar pain (VAS 9/10). She continues to experience dull, aching pain that radiates from the lumbar region into bilateral anterior thighs, with burning sensation and tactile hypersensitivity (left > right). She denies paresthesias, bowel/bladder dysfunction, or constitutional symptoms. Patient has a BMI of 34.80 kg/m. Previous management includes physical therapy, physician- directed home exercise program, activity modification, medications (currently Ibuprofen and Lyrica), alternative interventions, and epidural steroid injections (most recently L3-4 JOSELO) without sustained relief. Physical examination reveals paralumbar tenderness, restricted lumbar ROM, positive straight leg raise on the left, and L4-5 dermatomal deficits. Imaging demonstrates L4-5 herniated nucleus pulposus with stenosis. Treatment plan includes continued home exercises, heat/ice application, nutritional supplementation, referral to pain management for bilateral L5-S1 facet blocks, and follow-up after injections. DEMOGRAPHICS: Age: 68 year Height: 5'7" Weight: 222 lbs BP:124/72 BMI: 34.80 kg/m2 Occupation: Retired CC: lumbar pain VAS: 9 HISTORY: Ms. Walsh presents to the office today, 10/21/24, for a recheck of her lumbar pain. Patient continues to report a dull aching lumbar pain that radiates across the low back and into the bilateral lower extremities into her anterior thighs.She describes it as a burning pain and states her thighs are painful to the touch, left greater than right. Patient currently denies any numbness or tingling into the lower extremities. Patient has trialed below listed treatment modalities with no relief. She is currently taking Ibuprofen and Lyrica for her symptoms. Patient ambulates independently. * Patient denies any f/c/sob/cp, perineal numbness or tingling, bowel, or bladder incontinence/retention. * The patients past social, medical, family, surgical history, as well as review of systems, have been reviewed. Please refer to the History and Physical form that has been scanned into our electronic medical record system. * 16 points review of systems completed and as stated in HPI, all other systems reviewed are negative. PAST TREATMENTS: PAST IMAGING: -YES, MRI and XR - TRAUMA RELATED: -NO - WORK RELATED: -NO - PT IN LAST 6 MONTHS: -YES, no sustained relief - PHYSICIAN DIRECTED HOME EXERCISE PROGRAM: -YES - ACTIVITY MODIFICATION: -YES - MEDICATIONS: -YES, Ibuprofen and Lyrica - ALTERNATIVE INTERVENTIONS (CHIROPRACTIC, ACCUPUNCTURE, MASSAGE, RICE): -YES - BRACING: -NO - INJECTIONS (JOSELO, TF, RFA): -YES, several JOSELO without sustained relief, last injection L3-4 JOSELO - MEDICAL HISTORY: Past Medical History: REVIEWED STATED IN CHART Past Surgical History: REVIEWED STATED IN CHART Social History: REVIEWED STATED IN CHART SMOKING: Never smoker ETOH: None SUBSTANCES: None Family History: REVIEWED STATED IN CHART P1 Current Medications: Rx: EFFEXOR XR 150MG ORAL Tablet, Ref: 11 Instructions: Take 1 Tablet ORAL daily. Rx: LEXAPRO 10MG ORAL Tablet, Ref: 11 Instructions: Take 1 Tablet ORAL daily. Rx: LYRICA 200MG ORAL Capsule, Ref: 11 Instructions: Take 1 Capsule ORAL twice daily. Rx: Motrin Ref: 0 Rx: levothyroxine 125 mcg tablet Ref: 0 Instructions: take 1 tablet (125 mcg) by oral route once daily P1 PHYSICAL EXAM: General: AOX3, NAD, Well hydrate, well nourished HEENT: No lumps or masses Extremities: No color changes, no pooling INTEGUMENT: Appearance: Normal color and turgor Surgical Incisions: N/A Hairy Patches: ABSENT Dorsal Skin Dimples: Normal [employer] spots: ABSENT PALPATION: TTP Midline: NO Paracervical: NO Parathoracic: NO Paralumbar: YES SIJ TESTING (Hilary's, FABER4, Compression, Distraction, Thigh Thrust, Hip Thrust): TESTED * POSITIVE FINDINGS: NEGATIVE FINDINGS: Hilary's, FABER4, Compression, Distraction, Thigh Thrust, Hip Thrust POSTURAL BALANCE: Coronal: BALANCED Sagittal: BALANCED Shoulder height: LEVEL Pelvic Girdle: LEVEL ROM AND APPEARANCE: Neck: UNRESTRICTED Lumbar: RESTRICTED Shoulders: Symmetrical Hips: Symmetrical Knees: Symmetrical Hands: Symmetrical Feet: Symmetrical VASCULAR STATUS: PALPABLE PULSES B/L UE AND LE 2/4 RAD/ULNAR/DP/PT Edema: NONE NEUROLOGICAL EXAMINATION: Mental Status: Awake, alert, fully oriented with normal attention, concentration, and memory. Fluent appropriate speech. CRANIAL NERVES: I: Olfactory not assessed. II: Visual acuity normal, no visual field deficit noted with confrontation. III, IV: Normal pupillary reflexes & intact extraocular movements without nystagmus. V, : Intact symmetrical facial sensation. VII: Intact symmetrical facial motor movement: Hearing intact. IX, X: Intact gag, swallow, & normal voice. XI: Sternocleidomastoid, trapezius function intact. XII: Tongue midline with normal movements. TENSIONING: * L'HERMITTE'S SIG:NEG SPURLUNG'S SIGN:NEG UPPER EXTREMITY TENSIONING SIGNS: NEG CUBITAL TUNNEL COMPRESSION:NEG TINELS AT WRIST:NEG STRAIGH LEG RAISE:LEFT CONTRALATERAL STRAIGHT LEG RAISE: NEG MOTOR EXAM (0-5/5, NT) Muscle appearance: Symmetrical, without signs of atrophy or dystrophy UPPER EXTREMITY RIGHT LEFT Shoulder Abduction 5 5 Biceps 5 5 Triceps 5 5 Wrist Extension 5 5 Hand Intrinsics 5 5 Manager Simulation 5 5 LOWER EXTREMITY RIGHT LEFT Hip Flexion 5 5 Knee Extension 5 5 Knee Flexion 5 5 Dorsiflexion 5 5 Plantarflexion 5 5 EHL 5 5 FHL 5 5 REFLEXES (0-4/2, NT): RIGHT LEFT Bicep 2 2 Brachioradialis 2 2 Triceps 2 2 Patellar 2 2 Achilles 2 2 PATHOLOGICAL REFLEXES: RIGHT LEFT JAIN'S ABSENT ABSENT CLONUS ABSENT ABSENT BABINSKI ABSENT ABSENT RECTAL TONE: INTACT/NT SENSATION (0-4, NT): Sensation intact to LT and Pain * C5-T1 distribution BUE * L2-S2 distribution BLE *Exceptions below* DERMATOMAL DEFICIT/RADICULAR PATTERN: L4-5 LEFT GAIT AND FUNCTIONAL EVALUATION: AMBULATORY AID None ROMBERG'S TEST INTACT HAND AND FINGER DEXTERITY INTACT YES DYSDIADOCHOKINESIA EXAM NEG B/L YES TOE/HEEL WALK INTACT WITH GOOD BALANCE YES SQUAT AND RISE W/O ASSISTANCE TO 60 DEG KNEE FLEXION YES SINGLE LEG STANCE INTACT TRENDELENBURG NEG IMAGING: No new images today, see previous notes IMPRESSION: It was my pleasure to have seen and examined Marlyn. I reviewed the patient's clinical syndrome, physical findings, and imaging studies during the appointment today. It is my impression that the patient has a diagnosis of. 1.L4-5 HNP with stenosis 2.Left lower extremity radiculopathy 3.Low back pain PLAN: DISCUSSION: -I have discussed with the patient their clinical signs and symptoms, imaging, and treatment options. We have discussed risks, benefits, potential outcomes and natural course as pertains top their issues. The patient understands and would like to proceed as follows below: SURGICAL RECOMMENDATION -N/A THERAPIES - -Cont. with home exercises and home PT exercises as able -Cont. with Heat/Ice as warranted -Cont. with supplementation Vit D, Vit C, Ca2+, High protein diet -OK for massage or other alternative treatment modalities as able. If it exacerbates your sx do not continue ACTIVITY -Recommend walking up to 30 min 2x daily on a flat easy surface with good support. -WORK STATUS: N/A MEDICATIONS -Take as directed -Cont. home medications as directed by your PCP. Check with your PCP for any medication interactions or issues if needed. IMAGING -N/A INJECTIONS -Patient referred to pain management for bilateral L5-S1 facet blocks FOLLOW UP: After injections PLAN AT NEXT VISIT: RECHECK PATIENT EDUCATION: Medications Reviewed: YES In our visit today Ms. Walsh and I have had a chance to go over my understanding of the patient's current condition, the natural course history without intervention and various interventional options. Questions were invited and answered, and the patient wishes to proceed as outlined above. I will be sure to keep you updated after Ms. Walsh returns here for further follow-up. Thank you again for your referral. Please do not hesitate to contact me if you have any further questions. Signed and authenticated by: Saul Knight [facility] [address] [facility], [address] [address] . This message is confidential, intended only for the named recipient(s) and may contain information that is privileged or exempt from disclosure under applicable law. If you are not the intended recipient(s), you are notified that the dissemination, distribution or copying of this information is prohibited. If you received this message in error, please notify the sender then delete this message. 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 History of Any Multi-Drug Resistant Organisms: None Reported Past Surgical History: Cholecystectomy, Hernia Repair, Joint Replacement, Orthopedic Surgery Additional Past Surgical History / Comment(s): Indra fundoplasty, 2017 total left knee replacement, D&C, COLONOSCOPY, EGD, PAIN CLINIC PROCEDURES. right ankle surg. Past Anesthesia/Blood Transfusion Reactions: Motion Sickness, Postoperative Nausea & Vomiting (PONV) Additional Past Anesthesia/Blood Transfusion Reaction / Comment(s): unk family hx Smoking Status: Never smoker - Past Family History Father Family Medical History: Cancer Additional Family Medical History / Comment(s): Lung cancer. Medications and Allergies Home Medications Medication Instructions Recorded Confirmed Type Escitalopram [Lexapro] 10 mg PO DAILY 09/21/16 11/25/24 History Venlafaxine HCl [Effexor XR] 150 mg PO QAM 09/21/16 11/25/24 History traZODone HCL 100 mg PO HS 09/21/16 11/25/24 History Levothyroxine Sodium [Synthroid] 137 mcg PO DAILY 04/07/20 11/25/24 History Pregabalin [Lyrica] 200 mg PO BID 07/04/24 11/25/24 History Ferrous Sulfate [Iron] 65 mg PO DAILY 11/20/24 11/25/24 History Allergies Allergy/AdvReac Type Severity Reaction Status Date / Time Iodinated Contrast Media Allergy Severe Dyspnea Verified 11/25/24 10:47 adhesive tape Allergy Rash/Hives Verified 11/25/24 10:47 cephalexin [From Keflex] Allergy Nausea & Verified 11/25/24 10:47 Vomiting & Diarrhea cetirizine [From Zyrtec] Allergy Rash/Hives Verified 11/25/24 10:47 Iodine and Iodide Containing Allergy blister Verified 11/25/24 10:47 Produc Physical Examination Osteopathic Statement: *. No significant issues noted on an osteopathic structural exam other than those noted in the History and Physical/Consult. Results - Labs Labs: Abnormal Lab Results - Last 24 Hours (Table) 11/25/24 Range/Units 10:59 POC Glucose (mg/dL) 139 H (70-110) mg/dL
--- NOTE | 2024-11-25 16:49 | P.OP ---
Date of Procedure: 11/25/24 Preoperative Diagnosis: 1. L5-S1 SPONDYLOSIS WITH FACET ARTHROSIS SEVERE 2. LOW BACK PAIN 3. DEGENERATIVE DISC DISEASE Postoperative Diagnosis: 1. L5-S1 SPONDYLOSIS WITH FACET ARTHROSIS SEVERE 2. LOW BACK PAIN 3. DEGENERATIVE DISC DISEASE Procedure(s) Performed: 1. BILATERAL L5-S1 FACET BLOCKS UNDER FLUROSCOPIC GUIDANCE Implants: NONE Anesthesia: GETA Surgeon: Saul Gold Estimated Blood Loss (ml): 2 IV fluids (ml): 0 Urine output (ml): 0 Pathology: none sent Condition: stable Disposition: PACU Indications for Procedure: .D:Date: 10/21/24 : 04:29pm .T:Title: RECHECK H1 [facility] [address] [address]| PROVIDER: SAUL GOLD DO CLINICAL SUMMARY: Ms. Walsh is a 68-year-old retired female who presents for follow-up evaluation of chronic lumbar pain (VAS 9/10). She continues to experience dull, aching pain that radiates from the lumbar region into bilateral anterior thighs, with burning sensation and tactile hypersensitivity (left > right). She denies paresthesias, bowel/bladder dysfunction, or constitutional symptoms. Patient has a BMI of 34.80 kg/m. Previous management includes physical therapy, physician- directed home exercise program, activity modification, medications (currently Ibuprofen and Lyrica), alternative interventions, and epidural steroid injections (most recently L3-4 JOSELO) without sustained relief. Physical examination reveals paralumbar tenderness, restricted lumbar ROM, positive strai ght leg raise on the left, and L4-5 dermatomal deficits. Imaging demonstrates L4-5 herniated nucleus pulposus with stenosis. Treatment plan includes continued home exercises, heat/ice application, nutritional supplementation, referral to pain management for bilateral L5-S1 facet blocks, and follow-up after injections. DEMOGRAPHICS: Age: 68 year Height: 5'7" Weight: 222 lbs BP:124/72 BMI: 34.80 kg/m2 Occupation: Retired CC: lumbar pain VAS: 9 HISTORY: Ms. Walsh presents to the office today, 10/21/24, for a recheck of her lumbar pain. Patient continues to report a dull aching lumbar pain that radiates across the low back and into the bilateral lower extremities into her anterior thig hs.She describes it as a burning pain and states her thighs are painful to the touch, left greater than right. Patient currently denies any numbness or tingling into the lower extremities. Patient has trialed below listed treatment modalities with no relief. She is currently taking Ibuprofen and Lyrica for her symptoms. Patient ambulates independently. * Patient denies any f/c/sob/cp, perineal numbness or tingling, bowel, or bladder incontinence/retention. * The patients past social, medical, family, surgical history, as well as review of systems, have been reviewed. Please refer to the History and Physical form that has been scanned into our electronic medical record system. * 16 points review of systems completed and as stated in HPI, all other systems reviewed are negative. PAST TREATMENTS: PAST IMAGING: -YES, MRI and XR - TRAUMA RELATED: -NO - WORK RELATED: -NO - PT IN LAST 6 MONTHS: -YES, no sustained relief - PHYSICIAN DIRECTED HOME EXERCISE PROGRAM: -YES - ACTIVITY MODIFICATION: -YES - MEDICATIONS: -YES, Ibuprofen and Lyrica - ALTERNATIVE INTERVENTIONS (CHIROPRACTIC, ACCUPUNCTURE, MASSAGE, RICE): -YES - BRACING: -NO - INJECTIONS (JOSELO, TF, RFA): -YES, several JOSELO without sustained relief, last injection L3-4 JOSELO - MEDICAL HISTORY: Past Medical History: REVIEWED STATED IN CHART Past Surgical History: REVIEWED STATED IN CHART Social History: REVIEWED STATED IN CHART SMOKING: Never smoker ETOH: None SUBSTANCES: None Family History: REVIEWED STATED IN CHART P1 Current Medications: Rx: EFFEXOR XR 150MG ORAL Tablet, Ref: 11 Instructions: Take 1 Tablet ORAL daily. Rx: LEXAPRO 10MG ORAL Tablet, Ref: 11 Instructions: Take 1 Tablet ORAL daily. Rx: LYRICA 200MG ORAL Capsule, Ref: 11 Instructions: Take 1 Capsule ORAL twice daily. Rx: Motrin Ref: 0 Rx: levothyroxine 125 mcg tablet Ref: 0 Instructions: take 1 tablet (125 mcg) by oral route once daily P1 PHYSICAL EXAM: General: AOX3, NAD, Well hydrate, well nourished HEENT: No lumps or masses Extremities: No color changes, no pooling INTEGUMENT: Appearance: Normal color and turgor Surgical Incisions: N/A Hairy Patches: ABSENT Dorsal Skin Dimples: Normal [employer] spots: ABSENT PALPATION: TTP Midline: NO Paracervical: NO Parathoracic: NO Paralumbar: YES SIJ TESTING (Hilary's, FABER4, Compression, Distraction, Thigh Thrust, Hip Thrust): TESTED * POSITIVE FINDINGS: NEGATIVE FINDINGS: Hilary's, FABER4, Compression, Distraction, Thigh Thrust, Hip Thrust POSTURAL BALANCE: Coronal: BALANCED Sagittal: BALANCED Shoulder height: LEVEL Pelvic Girdle: LEVEL ROM AND APPEARANCE: Neck: UNRESTRICTED Lumbar: RESTRICTED Shoulders: Symmetrical Hips: Symmetrical Knees: Symmetrical Hands: Symmetrical Feet: Symmetrical VASCULAR STATUS: PALPABLE PULSES B/L UE AND LE 2/4 RAD/ULNAR/DP/PT Edema: NONE NEUROLOGICAL EXAMINATION: Mental Status: Awake, alert, fully oriented with normal attention, concentration, and memory. Fluent appropriate speech. CRANIAL NERVES: I: Olfactory not assessed. II: Visual acuity normal, no visual field deficit noted with confrontation. III, IV: Normal pupillary reflexes & intact extraocular movements without nystagmus. V, : Intact symmetrical facial sensation. VII: Intact symmetrical facial motor movement: Hearing intact. IX, X: Intact gag, swallow, & normal voice. XI: Sternocleidomastoid, trapezius function intact. XII: Tongue midline with normal movements. TENSIONING: * L'HERMITTE'S SIG:NEG SPURLUNG'S SIGN:NEG UPPER EXTREMITY TENSIONING SIGNS: NEG CUBITAL TUNNEL COMPRESSION:NEG TINELS AT WRIST:NEG STRAIGH LEG RAISE:LEFT CONTRALATERAL STRAIGHT LEG RAISE: NEG MOTOR EXAM (0-5/5, NT) Muscle appearance: Symmetrical, without signs of atrophy or dystrophy UPPER EXTREMITY RIGHT LEFT Shoulder Abduction 5 5 Biceps 5 5 Triceps 5 5 Wrist Extension 5 5 Hand Intrinsics 5 5 Otolaryngology Teacher 5 5 LOWER EXTREMITY RIGHT LEFT Hip Flexion 5 5 Knee Extension 5 5 Knee Flexion 5 5 Dorsiflexion 5 5 Plantarflexion 5 5 EHL 5 5 FHL 5 5 REFLEXES (0-4/2, NT): RIGHT LEFT Bicep 2 2 Brachioradialis 2 2 Triceps 2 2 Patellar 2 2 Achilles 2 2 PATHOLOGICAL REFLEXES: RIGHT LEFT JAIN'S ABSENT ABSENT CLONUS ABSENT ABSENT BABINSKI ABSENT ABSENT RECTAL TONE: INTACT/NT SENSATION (0-4, NT): Sensation intact to LT and Pain * C5-T1 distribution BUE * L2-S2 distribution BLE *Exceptions below* DERMATOMAL DEFICIT/RADICULAR PATTERN: L4-5 LEFT GAIT AND FUNCTIONAL EVALUATION: AMBULATORY AID None ROMBERG'S TEST INTACT HAND AND FINGER DEXTERITY INTACT YES DYSDIADOCHOKINESIA EXAM NEG B/L YES TOE/HEEL WALK INTACT WITH GOOD BALANCE YES SQUAT AND RISE W/O ASSISTANCE TO 60 DEG KNEE FLEXION YES SINGLE LEG STANCE INTACT TRENDELENBURG NEG IMAGING: No new images today, see previous notes IMPRESSION: It was my pleasure to have seen and examined Marlyn. I reviewed the patient's clinical syndrome, physical findings, and imaging studies during the appointment today. It is my impression that the patient has a diagnosis of. 1.L4-5 HNP with stenosis 2.Left lower extremity radiculopathy 3.Low back pain PLAN: DISCUSSION: -I have discussed with the patient their clinical signs and symptoms, imaging, and treatment options. We have discussed risks, benefits, potential outcomes and natural course as pertains top their issues. The patient understands and would like to proceed as follows below: SURGICAL RECOMMENDATION -N/A THERAPIES - -Cont. with home exercises and home PT exercises as able -Cont. with Heat/Ice as warranted -Cont. with supplementation Vit D, Vit C, Ca2+, High protein diet -OK for massage or other alternative treatment modalities as able. If it exacerbates your sx do not continue ACTIVITY -Recommend walking up to 30 min 2x daily on a flat easy surface with good support. -WORK STATUS: N/A MEDICATIONS -Take as directed -Cont. home medications as directed by your PCP. Check with your PCP for any medication interactions or issues if needed. IMAGING -N/A INJECTIONS -Patient referred to pain management for bilateral L5-S1 facet blocks FOLLOW UP: After injections PLAN AT NEXT VISIT: RECHECK PATIENT EDUCATION: Medications Reviewed: YES In our visit today Ms. Walsh and I have had a chance to go over my understanding of the patient's current condition, the natural course history without intervention and various interventional options. Questions were invited and answered, and the patient wishes to proceed as outlined above. I will be sure to keep you updated after Ms. Walsh returns here for further follow-up. Thank you again for your referral. Please do not hesitate to contact me if you have any further questions. Signed and authenticated by: Saul Britt [facility] [address] [place], [place] [address], [address] [place] [address] . This message is confidential, intended only for the named recipient(s) and may contain information that is privileged or exempt from disclosure under applicable law. If you are not the intended recipient(s), you are notified that the dissemination, distribution or copying of this information is prohibited. If you received this message in error, please notify the sender then delete this message. # SIGNED BY Saul Gold (GOO)11/02/2024 10:15AM Description of Procedure: The patient was seen and examined in the preoperative area. All preoperative protocols were followed. Informed consent was obtained, risks and benefits of the procedure were discussed at length. Risks including bleeding infection damage to the surrounding tissue and risk of reoperation were discussed with the patient. Risk of anesthesia up to and including was discussed with the patient. These are outlined in the risk review. They were willing to accept these risks and all the risks of surgery. The patient was seen and evaluated by the anesthesia team who deemed them fit for surgery. The site was marked, the patient was willing to proceed with the procedure. The patient was transferred to the operative suite by the Department of anesthesia. The patient was transferred to a prone Emilio table very carefully. All bony prominences including wrists, elbows, axilla, chest, hips, and thighs, and feet were padded very well. Special attention was paid to the genitalia, and these were padded accordingly. SCDs were placed on bilateral lower extremities and were connected. Arms were well padded and placed on arm boards up and out in the 90/90 position. Once in position, again we confirmed good ventilation capabilities and that lines were running appropriately. The patients Lumbar spine was then exposed. 1010s were placed outlining the incision site. Standard alcohol was used to clean the incision site and allowed to dry. C-arm was used to needle localize the pedicles at L5-S1 and bio-neto the patient and confirm level for incision which was marked with a skin marker. Operative briefing was performed with all teams and everyone in agreement to proceed. The patient was then prepped and draped in a normal sterile fashion. Timeout was then performed, and all parties agreed with the procedure to be performed. Local anesthetic was then used 2% lidocain with epinepherine and 0.5% marcaine without 7cc bilaterally at the insertion point for the spinal needle for L5-S1 facet blocks. This was allowed to set up. Then an 18 gauge spinal needle was introduced under AP and LAT fluroscopy into the bilateral L5-S1 facet joints. A small amount of isovue confirmed us to be in good position. Then a mixture of 2% LIDOCAINE along with 0.5%MARCAINE with 40mg/mL of MethynPREDnisolone was palced in the fact joints b/l underr fluroscopic guidance. This bathed the joints and TP well. The needles were withdrawn and bandaids placd over the injection site. The patient was then transferred back to [facility] in stable condition having tolerated the procedure without complication. She was transferred to [facility] recovery without issues.
== END | disposition home or self-care (01) ==
LOC: OR 10:26
PROVIDERS: ATTEND Orthopaedic Surgery
DX: M48.061 Spinal stenosis, lumbar region without neurogenic claudication (principal); M47.817 Spondylosis without myelopathy or radiculopathy, lumbosacral region; M51.372 Other intervertebral disc degeneration, lumbosacral region with discogenic back pain and lower extremity pain; M79.7 Fibromyalgia; Z98.890 Other specified postprocedural states; Z90.49 Acquired absence of other specified parts of digestive tract; Z96.652 Presence of left artificial knee joint; Z80.1 Family history of malignant neoplasm of trachea, bronchus and lung; Z71.82 Exercise counseling; Z88.8 Allergy status to other drugs, medicaments and biological substances; Z91.041 Radiographic dye allergy status; Z88.1 Allergy status to other antibiotic agents; Z79.890 Hormone replacement therapy; Z79.899 Other long term (current) drug therapy
CPT/HCPCS: 72202; 64493; J2405; Q9967; J0665; J1010

== ENCOUNTER → 2025-01-14 | Outpatient (CLI) | payer MEDICARE ==
[2025-01-14 15:32] LABS: INR 0.95 sec (0.93-1.11); Prothrombin Time 10.7 sec (9.9-11.9)
[2025-01-14 15:56] LABS: Basophils # (A) 0.03 X 10*3/uL (0.00-0.10); Basophils % (A) 0.7 %; Eosinophils # (A) 0.08 X 10*3/uL (0.04-0.35); Eosinophils % (A) 1.7 %; HCT 25.8 % (37.2-46.3); HGB 7.5 g/dL (12.0-15.0); Lymphocytes # (A) 1.43 X 10*3/uL (0.90-5.00); MCH 24.7 pg (27.0-32.0); MCHC 29.1 g/dL (32.0-37.0); MCV 84.9 FL (80.0-97.0); Mean Platelet Volume 11.5 FL (9.5-12.2); Monocytes # (A) 0.31 X 10*3/uL (0.20-1.00); Monocytes % (A) 6.7 %; NRBC Per 100 WBC 0 X 10*3/uL (0.00-0.01); Neutrophils # (A) 2.74 X 10*3/uL (1.80-7.70); Neutrophils % (A) 59.5 %; Platelet Count 285 X 10*3/uL (140-440); RBC 3.04 X 10*6/uL (4.10-5.20); RDW 16.5 % (11.5-14.5); WBC 4.61 X 10*3/uL (4.50-10.00)
== END | disposition home or self-care (01) ==
LOC: LABPAT 09:53
PROVIDERS: ATTEND Orthopaedic Surgery
DX: Z01.818 Encounter for other preprocedural examination (principal); Z22.322 Carrier or suspected carrier of Methicillin resistant Staphylococcus aureus; M46.96 Unspecified inflammatory spondylopathy, lumbar region; R58 Hemorrhage, not elsewhere classified
CPT/HCPCS: 36415; 85025; 85610; 87070; 93005

== ENCOUNTER → 2025-02-08 | Outpatient (CLI) | payer MEDICARE ==
[2025-02-09 06:35] LABS: HCT 26.1 % (37.2-46.3); HGB 7.5 g/dL (12.0-15.0); MCH 22.7 pg (27.0-32.0); MCHC 28.7 g/dL (32.0-37.0); MCV 78.9 FL (80.0-97.0); Mean Platelet Volume 11.7 FL (9.5-12.2); NRBC Per 100 WBC 0 X 10*3/uL (0.00-0.01); Platelet Count 312 X 10*3/uL (140-440); RBC 3.31 X 10*6/uL (4.10-5.20); RDW 16.5 % (11.5-14.5); WBC 6.34 X 10*3/uL (4.50-10.00)
== END | disposition home or self-care (01) ==
LOC: LABWHC1 09:51
PROVIDERS: ATTEND Family Medicine
DX: D64.9 Anemia, unspecified (principal)
CPT/HCPCS: 36415; 85027